=== PATIENT | female | born 1955 | race American Indian/Alaskan Native ===

== ENCOUNTER 2017-01-15 00:39 | Inpatient (IN) | payer BC ==
[~2017-01-15 00:39] MED LIST: ADRENALIN ONE; CORDARONE IV ONE; SODIUM BICARBONATE ONE
[2017-01-15] MEDS ORDERED: NACL 0.9% 1000 ML 2,000 ML ONE (00:43)
[2017-01-15] MEDS ORDERED: AMIDATE IV ONE ×2 (00:49→14:31)
--- NOTE | 2017-01-15 01:26 | Emergency Department Report ---
ED CPR HPI - General Stated Complaint: CARDIAC ARREST Time Seen by Provider: 01/15/17 01:09 Source: EMS Mode of arrival: Stretcher Limitations: Altered Mental Status, Physical Limitation - History of Present Illness Initial Comments: 61-year-old female with a history of valve replacement (2 valves) and other unkown medical problems presents to the hospital status post cardiac arrest. Patient lives last known normal at 11:30 that she developed decreased responsiveness and shortness of breath. EMS received call his respiratory distress approximately 11:30. On scene by 11:55pm and patient was apneic. Initial rhythm identified is V. fib. Patient was intubated with Combitube, had a right lower extremity IO placed. Prior to arrival received epinephrine 5 doses, 6 defibrillated shocks, 1 amp of bicarbonate, 1 amp of D50, Narcan 2 mg, and amiodarone 300. EMS reports that patient had return in spontaneous circulation times to temporarily prior to arrival. Accu-Chek was not obtained but D50 was given empirically. No previous cardiac record available for review. Family at the bedside does not know details of history. They did add that the noted that patient sneezed, complained of shortness of breath, then deteriorated Requested that they speak to have patient to bring in her current medication list and medical history. - Related Data Home Medications Medication Instructions Recorded Confirmed Last Taken Aspirin [Aspirin Enteric Coated] 81 mg PO DAILY 08/28/13 01/15/17 12/09/15 Esomeprazole Magnesium [Nexium] 40 mg PO DAILY 08/28/13 01/15/17 12/09/15 Metoprolol [Lopressor TAB] 25 mg PO Q12H 08/28/13 01/15/17 12/09/15 Potassium 20 meq PO DAILY 08/28/13 01/15/17 12/09/15 Docusate Sodium [Colace CAP] 100 mg PO BID PRN 12/10/15 01/15/17 12/09/15 Gabapentin [Neurontin] 300 mg PO BID 12/10/15 01/15/17 12/09/15 Losartan Potassium [Losartan 25 mg PO DAILY 12/10/15 01/15/17 12/09/15 Potassium] Rosuvastatin (Nf) [Crestor] 20 mg PO QHS 12/10/15 01/15/17 12/08/15 Torsemide [Torsemide] 20 mg PO DAILY 12/10/15 01/15/17 12/09/15 Warfarin [Coumadin] 2.5 mg PO DAILY 12/10/15 01/15/17 12/08/15 Baclofen 5 mg PO DAILY PRN 01/15/17 01/15/17 Unknown Topiramate [Topamax] 50 mg PO BID 01/15/17 01/15/17 Unknown Allergies Allergy/AdvReac Type Severity Reaction Status Date / Time No Known Allergies Allergy Verified 12/10/15 07:53 ED Review of Systems ROS: Stated complaint: CARDIAC ARREST Other details as noted in HPI Comment: Unobtainable due to pts medical conditions ED Past Medical Hx - Past Medical History Hx Hypertension: Yes - Social History Smoking Status: Former Smoker - Medications Home Medications: Home Medications Medication Instructions Recorded Confirmed Last Taken Type Aspirin [Aspirin Enteric Coated] 81 mg PO DAILY 08/28/13 01/15/17 12/09/15 History Esomeprazole Magnesium [Nexium] 40 mg PO DAILY 08/28/13 01/15/17 12/09/15 History Metoprolol [Lopressor TAB] 25 mg PO Q12H 08/28/13 01/15/17 12/09/15 History Potassium 20 meq PO DAILY 08/28/13 01/15/17 12/09/15 History Docusate Sodium [Colace CAP] 100 mg PO BID PRN 12/10/15 01/15/17 12/09/15 History Gabapentin [Neurontin] 300 mg PO BID 12/10/15 01/15/17 12/09/15 History Losartan Potassium [Losartan 25 mg PO DAILY 12/10/15 01/15/17 12/09/15 History Potassium] Rosuvastatin (Nf) [Crestor] 20 mg PO QHS 12/10/15 01/15/17 12/08/15 History Torsemide [Torsemide] 20 mg PO DAILY 12/10/15 01/15/17 12/09/15 History Warfarin [Coumadin] 2.5 mg PO DAILY 12/10/15 01/15/17 12/08/15 History Baclofen 5 mg PO DAILY PRN 01/15/17 01/15/17 Unknown History Topiramate [Topamax] 50 mg PO BID 01/15/17 01/15/17 Unknown History ED Physical Exam - Other Other exam information: General: No limitations, patient is alert in no acute distress Head exam: Atraumatic, normocephalic Eyes exam: Pupils unreactive to light ENT: Orally intubated with Combitube he compressed sounds bilaterally Neck exam: Normal inspection, full range of motion, no meningismus nontender Respiratory exam: No spontaneous respirations. Positive bagging Cardiovascular: Pulseless upon arrival Abdomen: Firm abdomen distended Extremity: normal inspection Back: Normal Inspection Neurologic: GSC = 3 Psychiatric: unresponsive Skin: Warm, dry, intact ED Course Vital Signs 01/15/17 01/15/17 01/15/17 00:40 01:30 01:48 Pulse Rate 72 Respiratory 32 H Rate Blood Pressure 160/134 Blood Pressure 110/92 [Left] O2 Sat by Pulse 95 100 100 Oximetry 01/15/17 01/15/17 01/15/17 02:26 02:30 02:40 Pulse Rate 83 58 L 86 Respiratory 37 H 34 H 8 L Rate Blood Pressure 157/76 157/76 161/68 Blood Pressure [Left] O2 Sat by Pulse 100 100 100 Oximetry 01/15/17 01/15/17 01/15/17 02:50 03:00 03:10 Pulse Rate 43 L 43 L 86 Respiratory 14 29 H 29 H Rate Blood Pressure 152/68 165/72 152/68 Blood Pressure [Left] O2 Sat by Pulse 100 100 100 Oximetry 01/15/17 01/15/17 01/15/17 03:20 03:30 03:40 Pulse Rate 85 46 L 44 L Respiratory 30 H 25 H 18 Rate Blood Pressure 146/73 169/67 169/67 Blood Pressure [Left] O2 Sat by Pulse 100 100 100 Oximetry 01/15/17 01/15/17 01/15/17 03:50 04:00 04:10 Pulse Rate 88 87 89 Respiratory 30 H 24 30 H Rate Blood Pressure 140/76 144/86 144/86 Blood Pressure [Left] O2 Sat by Pulse 98 98 98 Oximetry 01/15/17 01/15/17 01/15/17 04:20 04:30 05:13 Pulse Rate 90 89 Respiratory 22 18 18 Rate Blood Pressure 136/85 130/88 151/91 Blood Pressure [Left] O2 Sat by Pulse 99 98 98 Oximetry - Reevaluation(s) Reevaluation #1: 01/15/17 Resuscitation efforts continued after patient arrival. Patient received 1 defibrillator shock at 200 J for V. tach, epinephrine 1 mg, and amiodarone 150 IV push. Positive return in spontaneous circulation with palpable pulse in systolic blood pressure above 100. Combitube then removed and patient intubated. Right femoral central line placed. - Consultations Consultation #1: 01/15/17 01:15 initial [address] aleman stemi attending. Because repeat due to artifact 01/15/17 01:29 case rediscussed after review of repeat ekg. no stemi. not a candidate for laboratory analyst at this time. Recommends amiodarone drip and magnesium IV - ABG Interpretation Ph: 7.27 PCO2: 48.5 PO2: 309 (100% fio2) Bicarbonate: 22 Interpretation: respiratory acidosis Additional Comments: RR increased from 16 to 20 - Central Line Placement Right Femoral Consent Obtained: emergent situation Time Out Performed: Yes Patient Placed on Monitor/Pulse Ox: Yes MD Prep: mask, gown, gloves Central Line Prep: Chlorhexidine scrub Local Anesthesia Used: Lidocaine 1% Amount of Anesthesia Used (mls): 3 Ultrasound Used for Placement: Yes Central Line Lumen Inserted: triple Bloods Obtained for Lab: Yes Central Line Position: good blood return, sutured in place with nyl Dressing Applied: Tegaderm Patient Tolerated Procedure: well Complications: none - Intubation Time Out Performed: Yes Sedative: Etomidate Mg Given: 20 Laryngoscope: [place] Size: 4 ET Tube Size: 7.5 Tube Secured Depth (cm): 22 Tube Secured Location: lips Tube Placement Confirmation: visualized tube passing t, equal breath sounds bilat, no breath sounds over epi, confirmation by capnometr Intubation Complications: none ED Medical Decision Making - Lab Data Result diagrams: 01/15/17 01:37 01/15/17 04:15 Lab Results 01/15/17 01/15/17 01/15/17 Range/Units 01:37 01:37 01:37 WBC 29.8 H (4.5-11.0) K/mm3 RBC 3.36 L (3.65-5.03) M/mm3 Hgb 10.1 (10.1-14.3) gm/dl Hct 32.6 (30.3-42.9) % MCV 97 (79-97) fl MCH 30 (28-32) pg MCHC 31 (30-34) % RDW 13.7 (13.2-15.2) % Plt Count 280 (140-440) K/mm3 PT 23.7 H (12.2-14.9) Sec. INR 2.11 H (0.87-1.13) APTT 40.6 H (24.2-36.6) Sec. Sodium 135 L (137-145) mmol/L Potassium 3.3 L (3.6-5.0) mmol/L Chloride 92.7 L (98-107) mmol/L Carbon Dioxide 16 L (22-30) mmol/L Anion Gap 30 mmol/L BUN 18 H (7-17) mg/dL Creatinine 1.5 H (0.7-1.2) mg/dL Estimated GFR 43 ml/min BUN/Creatinine Ratio 12.00 % Glucose 478 H (65-100) mg/dL Lactic Acid (0.7-2.0) mmol/L Calcium 7.7 L (8.4-10.2) mg/dL Magnesium (1.7-2.3) mg/dL Total Creatine Kinase 189 H (30-135) units/L CK-MB (CK-2) 11.5 H (0.0-4.0) ng/mL CK-MB (CK-2) Rel Index 6.0 H (0-4) Troponin T 0.067 H (0.00-0.029) ng/mL Triglycerides 132 (2-149) mg/dL Cholesterol 112 (50-199) mg/dL LDL Cholesterol Direct 48 L (50-130) mg/dL HDL Cholesterol 38 L (40-59) mg/dL Cholesterol/HDL Ratio 2.94 % 01/15/17 01/15/17 Range/Units 01:39 02:18 WBC (4.5-11.0) K/mm3 RBC (3.65-5.03) M/mm3 Hgb (10.1-14.3) gm/dl Hct (30.3-42.9) % MCV (79-97) fl MCH (28-32) pg MCHC (30-34) % RDW (13.2-15.2) % Plt Count (140-440) K/mm3 PT (12.2-14.9) Sec. INR (0.87-1.13) APTT (24.2-36.6) Sec. Sodium (137-145) mmol/L Potassium (3.6-5.0) mmol/L Chloride (98-107) mmol/L Carbon Dioxide (22-30) mmol/L Anion Gap mmol/L BUN (7-17) mg/dL Creatinine (0.7-1.2) mg/dL Estimated GFR ml/min BUN/Creatinine Ratio % Glucose (65-100) mg/dL Lactic Acid 7.20 H* (0.7-2.0) mmol/L Calcium (8.4-10.2) mg/dL Magnesium 2.60 H (1.7-2.3) mg/dL Total Creatine Kinase (30-135) units/L CK-MB (CK-2) (0.0-4.0) ng/mL CK-MB (CK-2) Rel Index (0-4) Troponin T (0.00-0.029) ng/mL Triglycerides (2-149) mg/dL Cholesterol (50-199) mg/dL LDL Cholesterol Direct (50-130) mg/dL HDL Cholesterol (40-59) mg/dL Cholesterol/HDL Ratio % - EKG Data -: EKG Interpreted by Nc - EKG Data When compared to previous EKG there are: previous EKG unavailable 01/15/17 03:14 Multiple EKGs obtained after return of spontaneous circulation due to artifact. Initial EKG was sinus rhythm with possible ST elevation V2, V3 and lateral T wave inversions. This was discussed with Dr. Aleman and repeat ordered due to artifact. EKG does not reveal any ST elevation therefore patient was not a candidate for catheterization. Patient does have persistent lateral T wave inversions. Previous not available for comparison - Radiology Data Radiology results: image reviewed (chest x-ray: Previous sternotomy, no acute findings, good ett position) - Medical Decision Making Patient requires admission to the ICU status post cardiac arrest. Patient is not on pressors and maintaining her vital signs. No sedation at this time patient does have some spontaneous movement. Cardiology has been consulted. Amiodarone drip initiated. Magnesium 2 g given an potassium chloride 40 mEq ordered via central line for mild hypokalemia. ABG shows a respiratory acidosis and respiratory rate increased from 16 to 20 - Differential Diagnosis mi, pe, chf, arrhythmia Critical Care Time: Yes Critical care time in (mins) excluding proc time.: 65 Critical care attestation.: If time is entered above; I have spent that time in minutes in the direct care of this critically ill patient, excluding procedure time. ED Disposition Clinical Impression: Sudden cardiac arrest, V-tach, Leukocytosis, Lactic acidosis, Renal insufficiency, Anticoagulated, Elevated troponin, Hypokalemia Disposition: OP ADMITTED IP TO THIS HOSP Is pt being admited?: Yes Condition: Stable Time of Disposition: 03:17 (Dr. Taylor/hospitalist)
[2017-01-15] MEDS ORDERED: MAGNESIUM SULFATE 2GM/50ML 2 GM/50 ML BAG IV ONE (01:28)
[2017-01-15] MEDS ORDERED: VASELINE LIP THERAPY TP PRN (01:31)
[2017-01-15] MEDS ORDERED: ARTIFICIAL TEARS OPHTH OINT OU PRN (01:31)
[2017-01-15] MEDS ORDERED: NACL 0.9% 1000 ML 1,000 ML IV ONE ×4 (01:33→08:46)
[2017-01-15] MEDS: CORDARONE 900 MG in D5W 482 ML IV SCH ×2 (01:53→23:41)
[2017-01-15] MEDS ORDERED: NACL 0.9% 500 ML IV SCH (02:00)
[2017-01-15 02:01] LABS: Hematocrit 32.6 % (30.3-42.9); Hemoglobin 10.1 gm/dl (10.1-14.3); Mean Corpuscular HGB Conc 31 % (30-34); Mean Corpuscular Hemoglobin 30 pg (28-32); Mean Corpuscular Volume 97 fl (79-97); Platelet Count 280 K/mm3 (140-440); Red Blood Count 3.36 M/mm3 (3.65-5.03); Red Cell Distribution Width 13.7 % (13.2-15.2)
[2017-01-15 02:06] LABS: White Blood Count 29.8 K/mm3 (4.5-11.0)
[2017-01-15 02:11] LABS: Creatine Kinase MB 11.5 ng/mL (0.0-4.0)
[2017-01-15 02:12] LABS: Calcium 7.7 mg/dL (8.4-10.2); Chloride 92.7 mmol/L (98-107); Potassium 3.3 mmol/L (3.6-5.0)
[2017-01-15 02:16] LABS: INR 2.11 (0.87-1.13)
[2017-01-15 02:17] LABS: Partial Thromboplastin Time 40.6 Sec. (24.2-36.6)
--- NOTE | 2017-01-15 03:41 | History and Physical Report ---
History of Present Illness Date of examination: 01/15/17 Chief complaint: Cardiac arrest History of present illness: History from chart, patient intubated and family at bedside gives poor history. No prior hospitalization here. Patient is a 61-year-old woman with a history of valve replacement x 2 per family (INR is 2.11 but they are not sure if she is on anticoagulation) and unknown other medical problems who presents to [facility] ED status post cardiac arrest. Patient last known normal was 11:00-11:30 pm then she developed decreased responsiveness and shortness of breath. EMS received a call regarding respiratory distress approximately 11:30pm. They arrived on scene by 11:55 pm and patient was apneic. Initial rhythm identified was V. fib, she received epinephrine x 5 doses, 6 defibrillated shocks, 1 amp of bicarbonate, 1 amp of D50, 2 mg Narcan, and Amiodarone 300 mg. Patient was intubated with a Combitube and a right lower extremity IO placed. EMS reports that patient had temporarily return of spontaneous circulation prior to arrival. Accu-Chek was not obtained but D50 was given empirically. Family states patient sneezed, then complained of shortness of breath followed by unresponsiveness. Resuscitation efforts continued after patient arrival. Patient received 1 defibrillator shock at 200 J for V. tach, epinephrine 1 mg, and amiodarone 150 IV push. Positive return of spontaneous circulation with palpable pulse with systolic blood pressure above 100. Combitube was then removed and patient was intubated for definitely airway. Right femoral central line placed. Initial [address] elevation V2, V3 and lateral T; reviewed by Dr Vargas, Floating Derrick Operator stemi attending compensation coordinator. EKG repeated due to artifact. Case rediscussed with Dr. Vargas and after review of repeat ekg, no stemi; therefore, not a candidate for finishing lab technician at this time. So, Hospitalist was called for admission. Dr. Vargas recommends amiodarone drip and IV magnesium. Multiple EKGs obtained after return of spontaneous circulation due to artifact. Patient is not on pressors and maintaining her vital signs. No sedation at this time patient does have some spontaneous movement. Cardiology has been consulted. Amiodarone drip initiated. Magnesium 2 g given and potassium chloride 40 mEq ordered via central line for mild hypokalemia. PMH: limited PSH: Valve replacement, ?mechanical on A/C SH: unknown FH: unknown ROS: unable to obtain with ETT in place Medications and Allergies Allergies Allergy/AdvReac Type Severity Reaction Status Date / Time No Known Allergies Allergy Verified 12/10/15 07:53 Home Medications Medication Instructions Recorded Confirmed Last Taken Type Aspirin [Aspirin Enteric Coated] 81 mg PO DAILY 08/28/13 12/10/15 12/09/15 History Esomeprazole Magnesium [Nexium] 40 mg PO DAILY 08/28/13 12/10/15 12/09/15 History Metoprolol [Lopressor TAB] 12.5 mg PO Q12H 08/28/13 12/10/15 12/09/15 History Potassium 90 mg PO DAILY 08/28/13 12/10/15 12/09/15 History Docusate Sodium [Colace CAP] 100 mg PO DAILY 12/10/15 12/10/15 12/09/15 History Gabapentin [Neurontin] 100 mg PO DAILY 12/10/15 12/10/15 12/09/15 History Losartan Potassium [Losartan 25 mg PO DAILY 12/10/15 12/10/15 12/09/15 History Potassium] Rosuvastatin (Nf) [Crestor] 20 mg PO QHS 12/10/15 12/10/15 12/08/15 History Torsemide [Torsemide] 20 mg PO DAILY 12/10/15 12/10/15 12/09/15 History Warfarin [Coumadin] 2.5 mg PO DAILY 12/10/15 12/10/15 12/08/15 History Baclofen 5 mg PO DAILY PRN 01/15/17 01/15/17 Unknown History Topiramate [Topamax] 50 mg PO BID 01/15/17 01/15/17 Unknown History Active Meds: Active Medications Hydrophilic Ointment (Vaseline Lip Therapy) 1 applic TP Q2HR PRN PRN Reason: Dry Lips Amiodarone HCl 900 mg/ (Dextrose) 500 mls @ 33.33 mls/hr IV DIRECT VALERIA; 1 MG /MIN PRN Reason: Protocol Last Admin: 01/15/17 01:53 Dose: 1 mg/min, 33.33 mls/hr Sodium Chloride (Nacl 0.9% 1000 Ml) 1,000 mls @ 999 mls/hr IV BOLUS ONE Stop: 01/15/17 04:10 Potassium Chloride (Kcl 20meq/100ml) 20 meq in 100 mls @ 100 mls/hr IV Q1H VALERIA Stop: 01/15/17 05:59 Multi-Ingred Cream/Lotion/Oil/Oint (Artificial Tears Ophth Oint) 1 applic OU Q4HR PRN PRN Reason: Dry Eye(s) Sodium Chloride (Nacl 0.9% 500 Ml) 1 ml IV DIRECT VALERIA Exam - Physical Exam Narrative exam: GEN: Critical ill obese woman who is intubated HEENT: Pupils pinpoint, OP ET TUBE IN PLACE NECK: SUPPLE, NO THYROMEGALY, cervical JVD, NO LAD CVS: Irregular regular, NORMAL S1S2 LUNGS/CHEST: Coarse breath sounds bilaterally NORMAL CHEST EXPANSION B, adequate AIR ENTRY B ABD: SOFT, distended, GBS, NO REBOUND OR GUARDING EXT/SKIN: trace tibia bilateral EDEMA MSK: Not Moving 4 NEURO: CN 2-12 GROSSLY INTACT, not following commands PSY: intubated - Constitutional Vitals: Temp Pulse Resp BP Pulse Ox 32 H 160/134 100 01/15/17 01:48 01/15/17 01:48 01/15/17 01:48 Results - Labs CBC & Chem 7: 01/15/17 01:37 01/15/17 01:37 Labs: Abnormal lab results 01/15/17 01/15/17 01/15/17 Range/Units 01:37 01:37 01:37 WBC 29.8 H (4.5-11.0) K/mm3 RBC 3.36 L (3.65-5.03) M/mm3 PT 23.7 H (12.2-14.9) Sec. INR 2.11 H (0.87-1.13) APTT 40.6 H (24.2-36.6) Sec. Sodium 135 L (137-145) mmol/L Potassium 3.3 L (3.6-5.0) mmol/L Chloride 92.7 L (98-107) mmol/L Carbon Dioxide 16 L (22-30) mmol/L BUN 18 H (7-17) mg/dL Creatinine 1.5 H (0.7-1.2) mg/dL Glucose 478 H (65-100) mg/dL Lactic Acid (0.7-2.0) mmol/L Calcium 7.7 L (8.4-10.2) mg/dL Magnesium (1.7-2.3) mg/dL Total Creatine Kinase 189 H (30-135) units/L CK-MB (CK-2) 11.5 H (0.0-4.0) ng/mL CK-MB (CK-2) Rel Index 6.0 H (0-4) Troponin T 0.067 H (0.00-0.029) ng/mL LDL Cholesterol Direct 48 L (50-130) mg/dL HDL Cholesterol 38 L (40-59) mg/dL 01/15/17 01/15/17 Range/Units 01:39 02:18 WBC (4.5-11.0) K/mm3 RBC (3.65-5.03) M/mm3 PT (12.2-14.9) Sec. INR (0.87-1.13) APTT (24.2-36.6) Sec. Sodium (137-145) mmol/L Potassium (3.6-5.0) mmol/L Chloride (98-107) mmol/L Carbon Dioxide (22-30) mmol/L BUN (7-17) mg/dL Creatinine (0.7-1.2) mg/dL Glucose (65-100) mg/dL Lactic Acid 7.20 H* (0.7-2.0) mmol/L Calcium (8.4-10.2) mg/dL Magnesium 2.60 H (1.7-2.3) mg/dL Total Creatine Kinase (30-135) units/L CK-MB (CK-2) (0.0-4.0) ng/mL CK-MB (CK-2) Rel Index (0-4) Troponin T (0.00-0.029) ng/mL LDL Cholesterol Direct (50-130) mg/dL HDL Cholesterol (40-59) mg/dL - Imaging and Cardiology EKG: image reviewed Chest x-ray: image reviewed Assessment and Plan History from chart, patient is intubated and family at bedside gives poor history. No prior hospitalization here. Patient is a 61-year-old woman with a history of valve replacement x 2 per family (INR is 2.11 but they are not sure if she is on anticoagulation) and unknown other medical problems who presents to [facility] ED status post cardiac arrest. Patient last known normal was 11:00-11:30 pm then she developed decreased responsiveness and shortness of breath. EMS received a call regarding respiratory distress approximately 11:30pm. They arrived on scene by 11:55 pm and patient was apneic. Initial rhythm identified was V. fib, she received epinephrine x 5 doses, 6 defibrillated shocks, 1 amp of bicarbonate, 1 amp of D50, 2 mg Narcan, and Amiodarone 300 mg. Patient was intubated with a Combitube and a right lower extremity IO placed. EMS reports that patient had temporarily return of spontaneous circulation prior to arrival. Accu-Chek was not obtained but D50 was given empirically. Family states patient sneezed, then complained of shortness of breath followed by unresponsiveness. Resuscitation efforts continued after patient arrival. Patient received 1 defibrillator shock at 200 J for V. tach, epinephrine 1 mg, and amiodarone 150 IV push. Positive return of spontaneous circulation with palpable pulse with systolic blood pressure above 100. Combitube was then removed and patient was intubated for definitely airway. Right femoral central line placed. Initial [address] elevation V2, V3 and lateral T; reviewed by Dr Vargas, Floating Derrick Operator stemi attending compensation coordinator. EKG repeated due to artifact. Case rediscussed with Dr. Vargas and after review of repeat ekg, no stemi; therefore, not a candidate for finishing lab technician at this time. So, Hospitalist was called for admission. Dr. Vargas recommends amiodarone drip and IV magnesium. Multiple EKGs obtained after return of spontaneous circulation due to artifact. Patient is not on pressors and maintaining her vital signs. No sedation at this time but patient does have some spontaneous movement. Cardiology has been consulted. Amiodarone drip initiated. Magnesium 2 g given and potassium chloride 40 mEq ordered via central line for mild hypokalemia. Requested that bring in her current medication list and medical history. Current med list has not been verified to reconcile. -Cardiac arrest as above: Consulted cardiology -Acute respiratory failure: consulted CCM -SIRS: empiric treat with ABX -Acute encephalopathy -DVT prophylaxis: INR therapeutic -?ELIGIO, vasomotor nephropathy -Electrolyte imbalances
[2017-01-15] MEDS: KCL 20MEQ/100ML 20 MEQ/100 ML BAG IV SCH ×2 (04:03→05:44)
[2017-01-15 04:57] LABS: Calcium 7.8 mg/dL (8.4-10.2); Chloride 97.4 mmol/L (98-107)
[2017-01-15 05:03] LABS: Potassium 5.3 mmol/L (3.6-5.0)
[2017-01-15 05:10] LABS: ISTAT Base Excess -4; ISTAT HCO3 22.5; ISTAT PCO2 48.5 (35-45); ISTAT PH 7.274 (7.35-7.45); ISTAT PO2 309 (80-105); ISTAT SO2 100; ISTAT TCO2 24
--- NOTE | 2017-01-15 05:11 | Admit Criteria Form ---
Admission Criteria Documentation: CARDIOLOGY GRG Clinical Indications for Admission to Inpatient Care ( Place 'X' for any and all applicable criteria): Hospital admission is needed for appropriate care of the patient because of ANY ONE of the following (1): [ ] I. Hemodynamic instability as indicated by ALL of the following (1)(2)(3) (4)(5) [ ]a) Vital signs or other findings not as expected for chronic patient condition or baseline [ ]b) Instability indicated by ANY ONE of the following: [ ]i) Hypotension [ ]ii) Symptomatic Tachycardia unresponsive to treatment ( e.g., analgesia, fluids, sedation as indicated) [ ]iii) Inadequate perfusion indicated by ANY ONE of the following: [ ] 1) Lactic acidosis (> 2 mmol/L) [ ] 2) New abnormal capillary refill (> 3 seconds) [ ] 3) Reduced urine output [ ] 4) New altered mental status [ ]iv) Orthostatic vital sign changes unresponsive to treatment (e.g., fluids) [ ]v) IV inotropic or vasopressor medication required to maintain adequate blood pressure or perfusion [ ] II. Severe heart failure as indicated by ANY ONE of the following(17)(18) [ ]a) Respiratory distress [ ]b) Hypotension [ ]c) Anasarca (refractory to outpatient therapy) [ ]d) Cardiac arrhythmias of immediate concern [ ]e) Myocardial ischemia [ ] III. Cardiac arrhythmias or findings of immediate concern indicated by ANY ONE of the following (19)(20): [ ] a) Heart rhythms that are inherently dangerous or unstable indicated by ANY ONE of the following (21)(22)(23): [ ] i) Resuscitated ventricular fibrillation or cardiac arrest [ ] ii) Ventricular escape rhythm [ ] iii) Sustained ventricular tachycardia (30 seconds or more of ventricular rhythm at greater than 100 beats per minute) [ ] iv) Nonsustained ventricular tachycardia and ANY ONE of the following: [ ] 1) Suspected cardiac ischemia as cause or consequence of ventricular tachycardia [ ] 2) In setting of acute myocarditis [ ] b) Unstable cardiac conduction defects indicated by ANY ONE of the following(23)(24)(25) [ ] i) Type II second-degree atrioventricular block [ ]ii) Third-degree atrioventricular block [ ]iii) New-onset left bundle branch block with suspected myocardial ischemia [ ]c) Any heart rhythm and ANY ONE of the following (21)(22)(26)(27) (28) [ ] i) Continuous long-term ECG monitoring needed (e.g., initiation of drug requiring monitoring for more than 24 hours) [ ] ii) Patient has automatic implanted cardioverter defibrillator that is repeatedly firing, malfunctioning, or in need of immediate adjustment of settings beyond the scope of ambulatory or observation care [ ]d) Heart rhythms of concern due to ANY ONE of the following: [ ] i) Hypotension [ ] ii) Respiratory distress [ ] iii) Association with other significant symptoms (e.g., bradycardia with syncope or ongoing dizziness, supraventricular tachycardia with chest pain (14)(15)(17) [ ] IV. Monitoring for cardiac contusion beyond the scope of observation care needed [A](30)(31)(32) [ ] V. Surgical or device complication (e.g., valve replacement complication , pacemaker dysfunction) (35)(41)(44)(45)(46) [ ] . Inpatient palliative care needed. [B](49) Also use Inpatient Palliative Care Criteria [ ] VII. Nonbacterial thrombotic (marantic) endocarditis (36)(43)(47)(48) [X ] VIII. Cardiology condition, symptom, or finding for which emergency and observation care has failed or are not considered appropriate. [ ] IX. Acute valvular disease requiring inpatient as indicated by ANY ONE of the following (41) [ ]a) Acute valvular regurgitation (42) [ ]b) Noninfectious valvulitis (43) [ ]c) Obstructive valve thrombosis [ ]d) Paravalvular leak [ ]e) Other significant valvular disorder remaining after emergency or observation level of care (as appropriate) [ ]X. Pericardial disease requiring inpatient treatment as indicated by ANY ONE of the following (33)(34)(35)(36)(37) [ ]a) Suspected tamponade (38)(39)(40) [ ]b) Hemopericardium [ ]c) Other significant pericardial disorder remaining after emergency or observation level of care (as appropriate) [ ] XI. Cardiac ischemia beyond scope of emergency and observation care. [ ] XII. Hypertension requiring inpatient treatment as indicated by ANY ONE of the following (6)(7)(8) [ ]a) SBP greater than 220 mm Hg or DBP greater than 120 mmHg despite treatment [ ]b) SBP greater than 140 mm Hg or DBP greater than 100 mm Hg with evidence of acute end organ damage as indicated by ANY ONE of the following [ ] i) Altered mental status [ ] ii) Acute renal failure as indicated by new onset of ANY ONE of the following (9)(10)(11)(12)(13) [ ]1) 3-fold rise in serum creatinine from baseline [ ]2) Serum creatinine greater than 4 mg/dL ( 354 micromoles/L) with acute rise greater than 0.5 mg/dL (44.2 micromoles/L) [ ]3) Reduction of more than 75% in estimated glomerular filtration rate from baseline [ ]4) Estimated glomerular filtration rate less than 35 mL/min/1.73m2 (0.59 mL/sec/1.73m2) in child up to 18 years of age [ ]5) Cessation of urine output indicated by ALL of the following [ ]A. Adequate volume status [ ]B. Inadequate urine output as indicated by ANY ONE of the following [ ]a. Urine output less than 0.3 mL/kg/hr for 24 hours [ ]b. Anuria (urine output less than 0.1 mL/kg/hr) for 12 hours [ ] iii) Aortic dissection [ ] iv) Myocardial Ischemia [ ] v) Left ventricular heart failure [ ]vi) Retinal Hemorrhage [ ]vii) Other significant finding [ ]c) Hypertension in child requiring inpatient treatment as indicated by ALL of the following(14)(15)(16) [ ] i) Outpatient treatment not effective, not available, or not appropriate [ ]ii) SBP or DBP greater than 95th percentile for age [ ]iii) Evidence of acute end organ damage as indicated by ANY ONE of the following [ ]1) Altered mental status [ ]2) Acute renal failure as indicated by new onset of ANY ONE of the following(9)(10)(11)(12)(13) [ ]A. 3-fold rise in serum creatinine from baseline [ ]B. Serum creatinine greater than 4 mg/dL (354 micromoles/L) with acute rise greater than 0.5 mg/dL (44.2 micromoles/L) [ ]C. Reduction of more than 75% in estimated glomerular filtration rate from baseline [ ]D. Estimated glomerular filtration rate less than 35 mL/min/1.73m2 (0.59 mL/sec/1.73m2) in child up to 18 years of age [ ]E. Cessation of urine output indicated by ALL of the following [ ]a. Adequate volume status [ ]b. Inadequate urine output as indicated by ANY ONE of the following [ ]i) Urine output less than 0.3 mL/kg/hr for 24 hours [ ]ii) Anuria ( urine output less than 0.1 mL/kg/hr) for 12 hours [ ]3) Severe headache [ ]4) Visual disturbance [ ]5) Retinal hemorrhage [ ]6) Other significant finding [ ]XIII. Complications of transplanted heart indicated by ANY ONE of the following(61): [ ]a) Acute graft rejection requiring inpatient management (eg, intravenous immunosuppression)(62)(63) [ ]b) Acute graft heart failure indicated by ANY ONE of the following(64): [ ]i) Hemodynamic instability [ ]ii) Cardiac arrhythmias of immediate concern [ ]iii) Pulmonary edema that is very severe (eg, mechanical ventilation needed, imminent or likely, need for 100% oxygen to keep oxygen saturation above 90%) [ ]iv) Pulmonary edema that is persistent as indicated by ALL of the following: [ ]1) New need for oxygen therapy to keep oxygen saturation above 90% (or increased FiO2 need from baseline) [ ]2) Has not improved sufficiently with emergency department or observation care IV diuretics or other heart failure treatments[E] [ ]v) Altered mental status that is severe or persistent [ ]vi) Increased creatinine (new on laboratory test) with reduction of more than 50% in estimated glomerular filtration rate from baseline [ ]vii) Progressively (ongoing) rising creatinine (known from past laboratory test) with reduction of more than 25% in estimated glomerular filtration rate from baseline [ ]viii) Acute renal failure [ ]ix) Acute peripheral ischemia (eg, examination shows pulseless, cool, mottled, or cyanotic extremity) [ ]x) Pulmonary artery catheter monitoring needed [ ]xi) Other sign or symptom of heart failure requiring inpatient treatment (ie, too severe or not responsive to outpatient and observation care treatment) [ ]c) Infection requiring inpatient management (eg, Hemodynamic instability, need for intravenous antimicrobial treatment)(66)(67)(68)(69)(70) [ ]d) Cardiac allograft vasculopathy requiring inpatient management ( eg evidence of cardiac ischemia)(71) [ ]e) Other complication of transplanted heart (eg, stroke, severe pulmonary hypertension, severe valvular dysfunction) requiring inpatient management(72) The original [facility] [employer] content created by [facility] has been revised. The portions of the content which have been revised are identified through the use of italic text or in bold, and [facility] has neither reviewed nor approved the modified material. All other unmodified content is copyright [facility] [employer]. Please see references footnoted in the original [facility] [employer] edition 2016 Admission Criteria Met: Yes
[2017-01-15] MEDS: ZOSYN/NS 4.5GM/100ML 4.5 GM/100 ML VIAL IV SCH ×3 (06:29→22:18)
--- NOTE | 2017-01-15 07:02 | XRay Report ---
Single view chest: History: Postintubation. Findings: Borderline cardiomegaly. Trachea is midline. Tip of endotracheal tube in normal position. No consolidation, pneumothorax or pleural effusion. Impression: Cardiomegaly. No acute lung changes.
[2017-01-15 07:35] LABS: Creatine Kinase MB 75.8 ng/mL (0.0-4.0)
[2017-01-15] MEDS ORDERED: NACL 0.9% 1000 ML 1,000 ML ONE ×2 (07:54→15:07)
[2017-01-15] MEDS: LEVOPHED DRIP 4 MG/NS 250 ML 4 MG/250 ML BAG IV SCH ×4 (08:48→23:05)
--- NOTE | 2017-01-15 10:43 | Consultation ---
History of Present Illness Consult date: 01/15/17 Reason for consult: other (out of hospital cardiac arrest, VT with defibrillation, ROSC,CAD) History of present illness: Called at the unit to evaluate case with a patient have being admitted after out -of-hospital cardiac arrest. Son at bedside but he has no knowledge the patient 's history since he lives out of town. Per record review, " 61-year-old woman with a history of valve replacement x 2 per family (INR is 2.11 but they are not sure if she is on anticoagulation) and unknown other medical problems who presents to [facility] ED status post cardiac arrest. Patient last known normal was 11:00-11:30 pm then she developed decreased responsiveness and shortness of breath. EMS received a call regarding respiratory distress approximately 11:30pm. They arrived on scene by 11:55 pm and patient was apneic. Initial rhythm identified was V. fib, she received epinephrine x 5 doses, 6 defibrillated shocks, 1 amp of bicarbonate, 1 amp of D50, 2 mg Narcan, and Amiodarone 300 mg. Patient was intubated with a Combitube and a right lower extremity IO placed. EMS reports that patient had temporarily return of spontaneous circulation prior to arrival. Accu-Chek was not obtained but D50 was given empirically. Family states patient sneezed, then complained of shortness of breath followed by unresponsiveness. Resuscitation efforts continued after patient arrival. Patient received 1 defibrillator shock at 200 J for V. tach, epinephrine 1 mg, and amiodarone 150 IV push. Positive return of spontaneous circulation with palpable pulse with systolic blood pressure above 100. Combitube was then removed and patient was intubated for definitely airway. Right femoral central line placed. Initial [address] elevation V2, V3 and lateral T; reviewed by Dr Vargas, Front End Application Developer stemi attending content administrator. EKG repeated due to artifact. Case rediscussed with Dr. Vargas and after review of repeat ekg, no stemi; therefore, not a candidate for equipment operator/laborer/supervisor at this time. So, Hospitalist was called for admission. Dr. Vargas recommends amiodarone drip and IV magnesium. Multiple EKGs obtained after return of spontaneous circulation due to artifact. Patient is not on pressors and maintaining her vital signs. No sedation at this time patient does have some spontaneous movement. Cardiology consulted. Amiodarone drip initiated. Patient is currently at the unit, on Lopressor drip, BP 88/52. Past History Past Medical History: acute [place], CAD Medications and Allergies Allergies Allergy/AdvReac Type Severity Reaction Status Date / Time No Known Allergies Allergy Verified 12/10/15 07:53 Home Medications Medication Instructions Recorded Confirmed Last Taken Type Aspirin [Aspirin Enteric Coated] 81 mg PO DAILY 08/28/13 01/15/17 12/09/15 History Esomeprazole Magnesium [Nexium] 40 mg PO DAILY 08/28/13 01/15/17 12/09/15 History Metoprolol [Lopressor TAB] 25 mg PO Q12H 08/28/13 01/15/17 12/09/15 History Potassium 20 meq PO DAILY 08/28/13 01/15/17 12/09/15 History Docusate Sodium [Colace CAP] 100 mg PO BID PRN 12/10/15 01/15/17 12/09/15 History Gabapentin [Neurontin] 300 mg PO BID 12/10/15 01/15/17 12/09/15 History Losartan Potassium [Losartan 25 mg PO DAILY 12/10/15 01/15/17 12/09/15 History Potassium] Rosuvastatin (Nf) [Crestor] 20 mg PO QHS 12/10/15 01/15/17 12/08/15 History Torsemide [Torsemide] 20 mg PO DAILY 12/10/15 01/15/17 12/09/15 History Warfarin [Coumadin] 2.5 mg PO DAILY 12/10/15 01/15/17 12/08/15 History Baclofen 5 mg PO DAILY PRN 01/15/17 01/15/17 Unknown History Topiramate [Topamax] 50 mg PO BID 01/15/17 01/15/17 Unknown History Active Meds: Active Medications Hydrophilic Ointment (Vaseline Lip Therapy) 1 applic TP Q2HR PRN PRN Reason: Dry Lips Amiodarone HCl 900 mg/ (Dextrose) 500 mls @ 33.33 mls/hr IV DIRECT VALERIA; 1 MG /MIN PRN Reason: Protocol Last Titration: 01/15/17 08:13 Dose: 0.49 mg/min, 16.66 mls/hr Piperacillin Sod/Tazobactam Sod (Zosyn/Ns 4.5gm/100ml) 4.5 gm in 100 mls @ 200 mls/hr IV Q8HR VALERIA PRN Reason: Protocol Last Admin: 01/15/17 06:29 Dose: 200 mls/hr Norepinephrine (Levophed Drip 4 Mg/Ns 250 Ml) 4 mg in 250 mls @ 7.5 mls/hr IV TITR VALERIA; 2 MCG/MIN PRN Reason: Protocol Last Titration: 01/15/17 09:09 Dose: 30 mcg/min, 112.5 mls/hr Multi-Ingred Cream/Lotion/Oil/Oint (Artificial Tears Ophth Oint) 1 applic OU Q4HR PRN PRN Reason: Dry Eye(s) Sodium Chloride (Nacl 0.9% 500 Ml) 1 ml IV DIRECT VALERIA Review of Systems ROS unobtainable: due to endotracheal tube, due to mental status Physical Examination Vital signs: Vital Signs Pulse BP Pulse Ox 72 110/92 95 01/15/17 00:40 01/15/17 00:40 01/15/17 00:40 General appearance: other (morbidly obese female, intubated orally, in no respiratory distress.) ENT: oropharynx moist Neck: supple, other (large neck difficult to panel for JVD) Ascultation: Bilateral: rhonchi (some sporadic, otherwise clear. No crackles) Cardiovascular: irregular rhythm Gastrointestinal: normoactive bowel sounds, non-distended Integumentary: normal Extremities: no cyanosis other (patient's, toes, nonresponsive. Pupils are approximately 5 mm nonreactive, no corneals. No posturing on pain stimulation) Results - Laboratory Findings CBC and BMP: 01/15/17 01:37 01/15/17 04:15 ABG POC ABG pH 7.274 (7.35-7.45) L 01/15/17 03:27 POC ABG pCO2 48.5 (35-45) H 01/15/17 03:27 POC ABG pO2 309 (80-105) H 01/15/17 03:27 POC ABG HCO3 22.5 01/15/17 03:27 POC ABG Total CO2 24 01/15/17 03:27 POC ABG O2 Sat 100 01/15/17 03:27 PT/INR, D-dimer PT 23.7 Sec. (12.2-14.9) H 01/15/17 01:37 INR 2.11 (0.87-1.13) H 01/15/17 01:37 Abnormal lab findings: Abnormal Labs 01/15/17 01/15/17 01/15/17 04:15 06:56 08:31 Sodium 136 L Potassium 5.3 H D Chloride 97.4 L BUN 22 H Creatinine 2.0 H Glucose 442 H Lactic Acid 3.00 H* Calcium 7.8 L Total Creatine Kinase 762 H CK-MB (CK-2) 75.8 H CK-MB (CK-2) Rel Index 9.9 H Troponin T 1.810 H* D - Diagnostic Findings Chest x-ray: report reviewed, image reviewed Assessment and Plan Out of hospital cardiac arrest with ROSC Ventricular tachycardia Coronary artery disease Anoxic encephalopathy Morbid obesity Hypertension Recommendations Follow-up ventilator protocol orders. Update ABG Bolus of normal saline 500 mL now keep blood pressure, MAP > 60 Hypothermia protocol next 24 hours, once blood pressure stabilizes Cardiology follow-up If no further neurological improvement in the next 24 hours, consider neurology consult EEG monitoring DVT prophylaxis Case discussed with LOCAL COORDINATOR,family in detail. All questions answered. Prognosis grave at this point. Critical care time was 40 minutes in [id number] evaluation and coordination of care
--- NOTE | 2017-01-15 11:32 | Progress Note ---
Assessment and Plan Assessment and plan: s/p V. fib arrest. Continue amiodarone drip. Cardiology consultation pending. Acute hypoxic respiratory failure. Pulmonary following. Septic shock. Patient with significant leukocytosis(29.8) and lactic acidosis( 7.2) on admission. Patient currently on Levophed drip. Continue sepsis pathway and IV antibiotics. Follow-up cultures and trend lactic acid levels. Elevated troponin. Etiology secondary to #1. Follow-up echocardiogram. Acute renal failure. Etiology secondary to acute kidney injury from ATN/sepsis/ hypoperfusion. Nephrology consultation. Check renal ultrasound. History Interval history: 61-year-old female with history of valve replacement 2 presented through the emergency department status post V. fib arrest. Patient received multiple medications during the resuscitative efforts. Please see chart for details. Patient currently intubated on mechanical ventilation with amiodarone and Levophed drips infusing. Hospitalist Physical - Constitutional Vitals: Temp Pulse Resp BP Pulse Ox 98.2 F 85 19 102/70 97 01/15/17 08:11 01/15/17 09:15 01/15/17 09:15 01/15/17 09:15 01/15/17 09:15 General appearance: Present: no acute distress, well-nourished - EENT Eyes: Present: PERRL, EOM intact ENT: hearing intact, clear oral mucosa, dentition normal - Neck Neck: Present: supple, normal ROM - Respiratory Respiratory effort: normal Respiratory: bilateral: diminished, rales, rhonchi - Cardiovascular Rhythm: regular Heart Sounds: Present: S1 & S2. Absent: gallop, rub - Extremities Extremities: no ischemia, No edema, Full ROM - Abdominal General gastrointestinal: soft, non-tender, non-distended, normal bowel sounds - Integumentary Integumentary: Present: clear, warm, dry - Neurologic Neurologic: CNII-XII intact, moves all extremities Results - Labs CBC & Chem 7: 01/15/17 01:37 01/15/17 04:15 Labs: Laboratory Last Values WBC 29.8 K/mm3 (4.5-11.0) H 01/15/17 01:37 RBC 3.36 M/mm3 (3.65-5.03) L 01/15/17 01:37 Hgb 10.1 gm/dl (10.1-14.3) 01/15/17 01:37 Hct 32.6 % (30.3-42.9) 01/15/17 01:37 MCV 97 fl (79-97) 01/15/17 01:37 MCH 30 pg (28-32) 01/15/17 01:37 MCHC 31 % (30-34) 01/15/17 01:37 RDW 13.7 % (13.2-15.2) 01/15/17 01:37 Plt Count 280 K/mm3 (140-440) 01/15/17 01:37 PT 23.7 Sec. (12.2-14.9) H 01/15/17 01:37 INR 2.11 (0.87-1.13) H 01/15/17 01:37 APTT 40.6 Sec. (24.2-36.6) H 01/15/17 01:37 POC ABG pH 7.274 (7.35-7.45) L 01/15/17 03:27 POC ABG pCO2 48.5 (35-45) H 01/15/17 03:27 POC ABG pO2 309 (80-105) H 01/15/17 03:27 POC ABG HCO3 22.5 01/15/17 03:27 POC ABG Total CO2 24 01/15/17 03:27 POC ABG O2 Sat 100 01/15/17 03:27 POC ABG Base Excess -4 01/15/17 03:27 FiO2 100 % 01/15/17 03:27 Sodium 136 mmol/L (137-145) L 01/15/17 04:15 Potassium 5.3 mmol/L (3.6-5.0) H D 01/15/17 04:15 Chloride 97.4 mmol/L (98-107) L 01/15/17 04:15 Carbon Dioxide 22 mmol/L (22-30) 01/15/17 04:15 Anion Gap 22 mmol/L 01/15/17 04:15 BUN 22 mg/dL (7-17) H 01/15/17 04:15 Creatinine 2.0 mg/dL (0.7-1.2) H 01/15/17 04:15 Estimated GFR 31 ml/min 01/15/17 04:15 BUN/Creatinine Ratio 11.00 % 01/15/17 04:15 Glucose 442 mg/dL (65-100) H 01/15/17 04:15 POC Glucose 452 (70-105) H 01/15/17 00:42 Lactic Acid 3.00 mmol/L (0.7-2.0) H* 01/15/17 08:31 Calcium 7.8 mg/dL (8.4-10.2) L 01/15/17 04:15 Magnesium 2.60 mg/dL (1.7-2.3) H 01/15/17 01:39 Total Creatine Kinase 762 units/L (30-135) H 01/15/17 06:56 CK-MB (CK-2) 75.8 ng/mL (0.0-4.0) H 01/15/17 06:56 CK-MB (CK-2) Rel Index 9.9 (0-4) H 01/15/17 06:56 Troponin T 1.810 ng/mL (0.00-0.029) H* D 01/15/17 06:56 Triglycerides 132 mg/dL (2-149) 01/15/17 01:37 Cholesterol 112 mg/dL (50-199) 01/15/17 01:37 LDL Cholesterol Direct 48 mg/dL (50-130) L 01/15/17 01:37 HDL Cholesterol 38 mg/dL (40-59) L 01/15/17 01:37 Cholesterol/HDL Ratio 2.94 % 01/15/17 01:37
[2017-01-15] MEDS ORDERED: SODIUM BICARBONATE FEEDTUBE PRN (13:02)
[2017-01-15] MEDS ORDERED: PANCREAZE DR 10,500 UNIT FEEDTUBE PRN (13:02)
[2017-01-15] MEDS ORDERED: SIMPLE SYRUP FEEDTUBE PRN ×2 (13:02)
[2017-01-15 13:42] LABS: Creatine Kinase MB 74.8 ng/mL (0.0-4.0)
--- NOTE | 2017-01-15 15:30 | Ultrasound Report ---
ULTRASOUND RENAL INDICATION: Acute renal failure. COMPARISON: None similar. FINDINGS: Renal sonography technically limited, though suggests borderline/mild increased renal cortical echogenicity, more so on the right. Diffuse echogenic imaged liver. Grossly preserved renal contours. No hydronephrosis. RIGHT KIDNEY measures 10.5 x 4.3 x 5.7 cm with cortical thickness of 1.5 cm. LEFT KIDNEY estimated at 11.5 x 6.1 x 5.8 cm with cortical thickness of 1.5 cm. URINARY BLADDER suboptimally distended and assessed due to an indwelling Black catheter. CONCLUSION: Mild underlying medical renal disease and fatty liver suspected sonographically without acute renal abnormality, as described. Please correlate. Thank you for the opportunity to participate in this patient's care.
--- NOTE | 2017-01-15 16:05 | Consultation ---
History of Present Illness Consult date: 01/15/17 Consult reason: cardiac arrest History of present illness: 61yr old woman admitted with out of the hospital cardiopulmonary arrest. Reported VF in the field, defibrillated several times. No acute ischemic changes on post resuscitation ECG. Multiple metabolic abnormalities on initial workup. Currently on pressor support and IV amiodarone drip. Review of records shows an extensive cardiac history. Patient has a history of rheumatic heart disease status post mechanical AVR. In 2009 patient was found to have multivessel coronary disease and underwent 3 vessel coronary bypass grafting followed by PCI 2012. A year ago she was found to have progressive mitral disease and underwent mechanical MVR at [facility]. She also has a history of paroxysmal atrial fibrillation. She is on warfarin for anticoagulation. INR 2.11 on presentation to the ED. Past History Past Medical History: acute [place], CAD Medications and Allergies Allergies Allergy/AdvReac Type Severity Reaction Status Date / Time No Known Allergies Allergy Verified 12/10/15 07:53 Home Medications Medication Instructions Recorded Confirmed Last Taken Type Aspirin [Aspirin Enteric Coated] 81 mg PO DAILY 08/28/13 01/15/17 12/09/15 History Esomeprazole Magnesium [Nexium] 40 mg PO DAILY 08/28/13 01/15/17 12/09/15 History Metoprolol [Lopressor TAB] 25 mg PO Q12H 08/28/13 01/15/17 12/09/15 History Potassium 20 meq PO DAILY 08/28/13 01/15/17 12/09/15 History Docusate Sodium [Colace CAP] 100 mg PO BID PRN 12/10/15 01/15/17 12/09/15 History Gabapentin [Neurontin] 300 mg PO BID 12/10/15 01/15/17 12/09/15 History Losartan Potassium [Losartan 25 mg PO DAILY 12/10/15 01/15/17 12/09/15 History Potassium] Rosuvastatin (Nf) [Crestor] 20 mg PO QHS 12/10/15 01/15/17 12/08/15 History Torsemide [Torsemide] 20 mg PO DAILY 12/10/15 01/15/17 12/09/15 History Warfarin [Coumadin] 2.5 mg PO DAILY 12/10/15 01/15/17 12/08/15 History Baclofen 5 mg PO DAILY PRN 01/15/17 01/15/17 Unknown History Topiramate [Topamax] 50 mg PO BID 01/15/17 01/15/17 Unknown History Active Meds: Active Medications Lipase/Protease/Amylase (Pancreaze Dr 10,500 Unit) 1 each FEEDTUBE PRN PRN PRN Reason: For Clogged Feeding Tube Hydrophilic Ointment (Vaseline Lip Therapy) 1 applic TP Q2HR PRN PRN Reason: Dry Lips Amiodarone HCl 900 mg/ (Dextrose) 500 mls @ 33.33 mls/hr IV DIRECT VALERIA; 1 MG /MIN PRN Reason: Protocol Last Titration: 01/15/17 08:13 Dose: 0.49 mg/min, 16.66 mls/hr Piperacillin Sod/Tazobactam Sod (Zosyn/Ns 4.5gm/100ml) 4.5 gm in 100 mls @ 200 mls/hr IV Q8HR VALERIA PRN Reason: Protocol Last Admin: 01/15/17 15:51 Dose: 200 mls/hr Norepinephrine (Levophed Drip 4 Mg/Ns 250 Ml) 4 mg in 250 mls @ 7.5 mls/hr IV TITR VALERIA; 2 MCG/MIN PRN Reason: Protocol Last Admin: 01/15/17 15:52 Dose: 30 mcg/min, 112.5 mls/hr Multi-Ingred Cream/Lotion/Oil/Oint (Artificial Tears Ophth Oint) 1 applic OU Q4HR PRN PRN Reason: Dry Eye(s) Simple Syrup (Simple Syrup) 15 ml FEEDTUBE PRN PRN PRN Reason: Hypoglycemia Simple Syrup (Simple Syrup) 30 ml FEEDTUBE PRN PRN PRN Reason: Hypoglycemia Sodium Bicarbonate (Sodium Bicarbonate) 325 mg FEEDTUBE PRN PRN PRN Reason: For Clogged Feeding Tube Sodium Chloride (Nacl 0.9% 500 Ml) 1 ml IV DIRECT VALERIA Physical Examination Vital Signs Pulse BP Pulse Ox 72 110/92 95 01/15/17 00:40 01/15/17 00:40 01/15/17 00:40 General appearance: other (intubated on the vent) Cardiac: Positive: Reg Rate and Rhythm Results 01/15/17 01:37 01/15/17 04:15 Cardiac Enzymes 01/15/17 01/15/17 Range/Units 06:56 13:10 CK-MB (CK-2) 75.8 H 74.8 H (0.0-4.0) ng/mL Comprehensive Metabolic Panel 01/15/17 Range/Units 04:15 Sodium 136 L (137-145) mmol/L Potassium 5.3 H D (3.6-5.0) mmol/L Chloride 97.4 L (98-107) mmol/L Carbon Dioxide 22 (22-30) mmol/L BUN 22 H (7-17) mg/dL Creatinine 2.0 H (0.7-1.2) mg/dL Glucose 442 H (65-100) mg/dL Calcium 7.8 L (8.4-10.2) mg/dL Assessment and Plan Out of the hospital cardiopulmonary arrest reported Vfib in the field on amiodarone drip Acute respiratory failure intubated on the vent Lactic acidosis Leukocytosis Acute renal failure Hx of mechanical AVR and MVR on warfarin as an outpatient. INR 2.11 on presentation Hx of paroxysmal Afib Hx of CAD s/p 3v CABG
[2017-01-15 16:15] LABS: ISTAT Base Excess -9; ISTAT HCO3 17.2; ISTAT PCO2 35.5 (35-45); ISTAT PH 7.294 (7.35-7.45); ISTAT PO2 91 (80-105); ISTAT SO2 96; ISTAT TCO2 18
[2017-01-16] MEDS: LEVOPHED DRIP 4 MG/NS 250 ML 4 MG/250 ML BAG IV SCH ×8 (01:16→17:27)
[2017-01-16] MEDS: ZOSYN/NS 4.5GM/100ML 4.5 GM/100 ML VIAL IV SCH ×3 (05:48→22:39)
[2017-01-16 06:22] LABS: BUN/Creatinine Ratio 9.44; Calcium 8.2 mg/dL (8.4-10.2); Chloride 102.8 mmol/L (98-107); Hematocrit 38.8 % (30.3-42.9); Hemoglobin 12.1 gm/dl (10.1-14.3); Mean Corpuscular HGB Conc 31 % (30-34); Mean Corpuscular Hemoglobin 31 pg (28-32); Mean Corpuscular Volume 98 fl (79-97); Platelet Count 307 K/mm3 (140-440); Potassium 3.4 mmol/L (3.6-5.0); Red Blood Count 3.98 M/mm3 (3.65-5.03); Red Cell Distribution Width 13.9 % (13.2-15.2)
[2017-01-16 06:24] LABS: White Blood Count 22.1 K/mm3 (4.5-11.0)
[2017-01-16 06:28] LABS: ISTAT Base Excess -9; ISTAT HCO3 16.6; ISTAT PCO2 31.5 (35-45); ISTAT PH 7.329 (7.35-7.45); ISTAT PO2 98 (80-105); ISTAT SO2 97; ISTAT TCO2 18
--- NOTE | 2017-01-16 08:26 | XRay Report ---
AP CHEST :01/16/17 CLINICAL: Intubated.Follow up respiratory failure. COMPARISON:The previous day. FINDINGS: The endotracheal tube is in satisfactory position. Are a feeding tube is identified in the upper half of the chest but the tip is not identified in the lower third of the esophagus or in the upper abdomen. The heart is normal size. Central vascular congestion is slightly increased compared to the prior exam. New wetting of the right minor fissure. No air space disease. Median sternotomy wires. No pneumothorax. IMPRESSION: Interval development of mild CHF.The distal aspect of the feeding tube is not identified and may be in the esophagus.
[2017-01-16] MEDS ORDERED: HEPARIN/ 0.45% NACL-25,000 UNIT/500 ML 500 ML IV SCH (10:00)
[2017-01-16 10:19] LABS: Hemoglobin 10.4 gm/dl (10.1-14.3)
[2017-01-16 10:31] LABS: INR 3.51 (0.87-1.13); Partial Thromboplastin Time 39.1 Sec. (24.2-36.6)
--- NOTE | 2017-01-16 10:46 | Progress Note ---
Assessment and Plan Assessment and plan: s/p V. fib arrest. Continue amiodarone drip. Cardiology following. Echocardiogram pending. Coronary artery disease. Patient reportedly has an extensive cardiac history with CABG 3. Patient also with mechanical valve replacements x 2 and coronary stenting. Continue supportive therapies including beta blockers, afterload reducing agents and anticoagulation. Follow-up old records at [facility]. Acute hypoxic respiratory failure. Pulmonary following. Continue mechanical ventilation per pulmonary. Shock. Etiology may be secondary to sepsis +/-cardiogenic. Patient with significant leukocytosis(29.8) and lactic acidosis(7.2) on admission. Patient currently on Levophed drip. Continue sepsis pathway and IV antibiotics. Follow -up cultures and trend lactic acid levels. Echocardiogram pending. Elevated troponin. Etiology secondary to #1. Follow-up echocardiogram. Acute renal failure. Etiology secondary to acute kidney injury from ATN/sepsis/ hypoperfusion. Nephrology consultation. Renal ultrasound demonstrates no obstruction. History Interval history: 61-year-old female with history of valve replacement 2 presented through the emergency department status post V. fib arrest. Patient received multiple medications during the resuscitative efforts. Please see chart for details. Patient currently intubated on mechanical ventilation with amiodarone and Levophed drips infusing. Hospitalist Physical - Constitutional Vitals: Temp Pulse Resp BP Pulse Ox 97.5 F L 86 23 76/53 100 01/16/17 08:00 01/16/17 10:10 01/16/17 10:10 01/16/17 10:10 01/16/17 10:10 General appearance: Present: other (intubated on the vent) - EENT Eyes: Present: PERRL, EOM intact ENT: hearing intact, clear oral mucosa, dentition normal - Neck Neck: Present: supple, normal ROM - Respiratory Respiratory effort: normal Respiratory: bilateral: CTA - Cardiovascular Rhythm: regular Heart Sounds: Present: S1 & S2. Absent: gallop, rub - Extremities Extremities: no ischemia, No edema, Full ROM - Abdominal General gastrointestinal: soft, non-tender, non-distended, normal bowel sounds - Integumentary Integumentary: Present: clear, warm, dry - Neurologic Neurologic: CNII-XII intact, moves all extremities Results - Labs CBC & Chem 7: 01/16/17 09:45 01/16/17 04:04 Labs: Laboratory Last Values WBC 22.1 K/mm3 (4.5-11.0) H 01/16/17 04:04 RBC 3.98 M/mm3 (3.65-5.03) 01/16/17 04:04 Hgb 10.4 gm/dl (10.1-14.3) 01/16/17 09:45 Hct 32.0 % (30.3-42.9) D 01/16/17 09:45 MCV 98 fl (79-97) H 01/16/17 04:04 MCH 31 pg (28-32) 01/16/17 04:04 MCHC 31 % (30-34) 01/16/17 04:04 RDW 13.9 % (13.2-15.2) 01/16/17 04:04 Plt Count 262 K/mm3 (140-440) 01/16/17 09:45 PT 35.5 Sec. (12.2-14.9) H 01/16/17 09:45 INR 3.51 (0.87-1.13) H 01/16/17 09:45 APTT 39.1 Sec. (24.2-36.6) H 01/16/17 09:45 POC ABG pH 7.329 (7.35-7.45) L 01/16/17 06:00 POC ABG pCO2 31.5 (35-45) L 01/16/17 06:00 POC ABG pO2 98 (80-105) 01/16/17 06:00 POC ABG HCO3 16.6 01/16/17 06:00 POC ABG Total CO2 18 01/16/17 06:00 POC ABG O2 Sat 97 01/16/17 06:00 POC ABG Base Excess -9 01/16/17 06:00 FiO2 40 % 01/16/17 06:00 Sodium 140 mmol/L (137-145) 01/16/17 04:04 Potassium 3.4 mmol/L (3.6-5.0) L D 01/16/17 04:04 Chloride 102.8 mmol/L (98-107) 01/16/17 04:04 Carbon Dioxide 16 mmol/L (22-30) L 01/16/17 04:04 Anion Gap 25 mmol/L 01/16/17 04:04 BUN 34 mg/dL (7-17) H 01/16/17 04:04 Creatinine 3.6 mg/dL (0.7-1.2) H D 01/16/17 04:04 Estimated GFR 16 ml/min 01/16/17 04:04 BUN/Creatinine Ratio 9.44 % 01/16/17 04:04 Glucose 117 mg/dL (65-100) H 01/16/17 04:04 POC Glucose 125 (70-105) H 01/16/17 05:21 Lactic Acid 2.60 mmol/L (0.7-2.0) H* 01/16/17 05:13 Calcium 8.2 mg/dL (8.4-10.2) L 01/16/17 04:04 Magnesium 2.20 mg/dL (1.7-2.3) 01/16/17 04:04 Total Creatine Kinase 1105 units/L (30-135) H 01/15/17 13:10 CK-MB (CK-2) 74.8 ng/mL (0.0-4.0) H 01/15/17 13:10 CK-MB (CK-2) Rel Index 6.7 (0-4) H 01/15/17 13:10 Troponin T 2.160 ng/mL (0.00-0.029) H* 01/15/17 13:10 Triglycerides 132 mg/dL (2-149) 01/15/17 01:37 Cholesterol 112 mg/dL (50-199) 01/15/17 01:37 LDL Cholesterol Direct 48 mg/dL (50-130) L 01/15/17 01:37 HDL Cholesterol 38 mg/dL (40-59) L 01/15/17 01:37 Cholesterol/HDL Ratio 2.94 % 01/15/17 01:37 TSH 2.230 mlU/mL (0.270-4.200) 01/16/17 04:04
--- NOTE | 2017-01-16 11:00 | XRay Report ---
SUPINE KUB: History: Nasogastric tube placement. The abdominal gas pattern is unremarkable. No masses or organomegaly is identified and there is no gross evidence of free air or fluid. No significant soft tissue calcifications are noted. The nasogastric tube terminates in the mid stomach. IMPRESSION: Normal study.
[2017-01-16] MEDS ORDERED: D50W (25GM) IV PRN (11:01)
--- NOTE | 2017-01-16 11:33 | Progress Note ---
Assessment and Plan Out of the hospital cardiopulmonary arrest reported Vfib in the field Postarrest ECGs revealed nonspecific ST changes, not diagnostic for ST elevation infarct. on amiodarone drip and heparin drip Acute respiratory failure intubated on the vent Cardiomyopathy, uncertain duration EF 20-25% on echocardiogram this admission Lactic acidosis Leukocytosis Acute renal failure Hx of mechanical AVR and MVR on warfarin as an outpatient. INR 2.11 on presentation Hx of paroxysmal Afib Hx of CAD s/p 3v CABG Recommendations: Continue beta blockers, afterload reducing agents and anticoagulation with heparin while off Coumadin. Transition to oral amiodarone for suppression of Vfib. Obtain prior cardiac records from [facility] for review. Supportive cardiac management. Subjective Date of service: 01/16/17 Interval history: Patient remains intubated on the vent. Objective Vital Signs Temp Pulse Resp BP Pulse Ox 01/16/17 11:02 85 89/50 100 01/16/17 10:10 86 23 76/53 100 01/16/17 10:00 87 24 76/53 94 01/16/17 09:50 84 24 78/50 100 01/16/17 09:40 84 24 84/53 100 01/16/17 09:30 84 24 84/53 100 01/16/17 09:20 84 24 92/51 100 01/16/17 09:10 83 24 88/54 100 01/16/17 09:00 84 24 88/54 01/16/17 08:50 84 24 87/47 100 01/16/17 08:40 83 24 94/51 100 01/16/17 08:30 84 24 94/51 100 01/16/17 08:20 84 24 88/49 100 01/16/17 08:10 84 24 98/56 100 01/16/17 08:00 97.5 F L 85 14 98/56 100 01/16/17 07:51 83 85/44 100 01/16/17 07:50 84 24 85/44 100 01/16/17 07:40 84 24 107/59 100 01/16/17 07:30 84 23 107/59 100 01/16/17 07:20 84 24 102/65 100 01/16/17 07:10 84 24 102/61 100 01/16/17 07:00 83 24 102/61 100 01/16/17 06:50 84 24 107/66 100 05/16/17 06:40 85 24 108/65 100 05/16/17 06:30 84 24 108/65 05/16/17 06:20 84 24 89/59 100 05/16/17 06:15 84 21 10 L 05/16/17 06:10 84 24 95/64 100 05/16/17 06:00 84 20 95/64 100 05/16/17 05:50 85 22 158/70 100 05/16/17 05:40 84 24 98/65 100 05/16/17 05:30 83 24 98/65 100 05/16/17 05:20 82 24 103/55 100 05/16/17 05:10 82 24 104/60 99 05/16/17 05:00 82 24 104/60 05/16/17 04:50 82 24 111/61 99 05/16/17 04:47 83 97/58 100 05/16/17 04:40 83 24 121/68 100 05/16/17 04:30 83 24 121/68 100 05/16/17 04:20 83 24 109/72 100 05/16/17 04:19 97.6 F 05/16/17 04:15 98.8 F 84 21 97/58 10 L 0516/17 04:10 83 24 111/71 100 05/16/17 04:00 84 25 H 111/71 100 05/16/17 03:50 83 24 114/72 100 05/16/17 03:40 83 23 97/58 100 05/16/17 03:30 83 11 L 97/58 100 05/16/17 03:20 83 24 105/67 100 05/16/17 03:10 83 24 102/68 100 05/16/17 03:00 83 24 102/68 05/16/17 02:50 83 24 98/64 100 05/16/17 02:40 83 24 108/77 100 05/16/17 02:30 84 19 108/77 100 05/16/17 02:20 84 24 94/58 100 05/16/17 02:10 84 24 102/53 100 05/16/17 02:05 80 20 100 05/16/17 02:00 84 24 102/53 100 05/16/17 01:50 83 24 93/58 100 05/16/17 01:40 83 24 98/52 100 05/16/17 01:30 82 24 115/73 051617 01:20 82 17 115/73 100 0517 01:15 80 21 100 05 01:10 81 24 126/73 100 0517 01:00 81 22 126/73 100 05 00:50 81 18 122/71 100 05 00:40 81 24 126/74 100 05 00:30 81 20 126/74 100 0517 00:25 97.3 F L 01/16/17 00:20 81 24 125/59 100 05 00:10 81 24 125/59 100 05 00:00 81 21 125/59 100 05 23:55 97.3 F L 01/15/17 23:52 80 24 123/59 100 05 23:50 80 24 123/59 100 05 23:44 80 24 119/72 100 05 23:40 80 21 119/72 100 0517 23:30 78 18 119/72 100 05 23:20 83 24 121/74 100 05 23:10 80 24 125/76 100 05 23:05 80 22 100 05 23:00 80 24 125/76 100 0517 22:50 78 24 131/114 100 05 22:40 78 24 119/62 100 05 22:30 79 20 119/62 98 0517 22:20 80 20 123/66 98 05 22:10 77 17 118/52 99 05 22:05 80 20 100 05 22:00 77 20 118/52 98 0517 21:50 78 20 98/57 99 0517 21:40 77 20 101/55 99 051517 21:30 78 20 101/55 99 05/15/17 21:20 79 20 98/57 99 0517 21:10 79 20 102/55 99 0517 21:00 79 20 123/66 98 051517 20:50 82 20 110/59 99 05/15/17 20:40 78 20 95/47 99 0515/17 20:30 74 20 111/55 0515/17 20:20 74 20 111/55 99 15/17 20:10 78 20 108/52 99 0515/17 20:00 97.8 F 78 20 108/52 99 15/17 19:50 78 20 120/76 99 05/15/17 19:40 80 14 125/73 99 0515/17 19:30 79 20 125/73 99 0515/17 19:20 79 20 109/73 99 15/17 19:10 80 20 111/66 98 0515/17 19:00 79 17 111/66 98 15/17 18:50 78 9 L 131/63 98 15/17 18:40 79 9 L 133/64 99 15/17 18:30 79 13 86/55 99 15/17 18:20 76 16 86/55 99 15/17 18:10 79 16 112/69 98 15/17 18:00 80 0 L 107/57 0515/17 17:50 80 0 L 107/57 98 15/17 17:40 81 0 L 106/59 98 0515/17 17:30 80 0 L 106/59 99 0515/17 17:20 81 20 111/55 99 15/17 17:10 81 0 L 111/57 97 15/17 17:00 81 0 L 111/57 99 15/17 16:50 83 0 L 122/65 98 0515/17 16:40 81 0 L 126/65 98 0515/17 16:30 81 0 L 126/65 98 0515/17 16:20 81 0 L 119/61 99 05/15/17 16:10 81 5 L 88/58 98 0515/17 16:00 97.3 F L 76 9 L 88/58 99 0515/17 15:50 79 13 85/51 98 05/15/17 15:40 81 20 84/48 98 05/15/17 15:37 80 99 05/15/17 15:30 81 19 81/31 05/15/17 15:20 80 20 94/46 98 05/15/17 15:10 81 21 93/53 98 05/15/17 15:00 80 20 70/32 01/15/17 14:50 81 20 96/54 98 01/15/17 14:40 83 19 114/66 98 01/15/17 14:30 83 19 114/66 01/15/17 14:20 81 20 114/66 99 01/15/17 14:10 82 19 119/52 99 01/15/17 14:00 82 20 119/78 01/15/17 13:50 82 14 119/78 99 01/15/17 13:40 82 17 102/66 99 01/15/17 13:30 83 20 102/48 97 01/15/17 13:20 81 20 109/69 98 01/15/17 13:10 82 19 98/65 98 01/15/17 13:00 83 20 102/66 96 01/15/17 12:50 84 20 98/65 96 01/15/17 12:40 85 17 106/65 97 01/15/17 12:30 85 20 106/65 98 01/15/17 12:00 97.2 F L 01/15/17 11:58 84 98 - Physical Examination General: Other (intubated on the vent) Cardiac: Positive: Reg Rate and Rhythm - Labs and Meds Cardiac Enzymes 01/15/17 Range/Units 13:10 CK-MB (CK-2) 74.8 H (0.0-4.0) ng/mL Coagulation 01/16/17 Range/Units 09:45 PT 35.5 H (12.2-14.9) Sec. INR 3.51 H (0.87-1.13) APTT 39.1 H (24.2-36.6) Sec. CBC 01/16/17 01/16/17 Range/Units 04:04 09:45 WBC 22.1 H (4.5-11.0) K/mm3 RBC 3.98 (3.65-5.03) M/mm3 Hgb 12.1 10.4 (10.1-14.3) gm/dl Hct 38.8 D 32.0 D (30.3-42.9) % Plt Count 307 262 (140-440) K/mm3 Comprehensive Metabolic Panel 01/16/17 Range/Units 04:04 Sodium 140 (137-145) mmol/L Potassium 3.4 L D (3.6-5.0) mmol/L Chloride 102.8 (98-107) mmol/L Carbon Dioxide 16 L (22-30) mmol/L BUN 34 H (7-17) mg/dL Creatinine 3.6 H D (0.7-1.2) mg/dL Glucose 117 H (65-100) mg/dL Calcium 8.2 L (8.4-10.2) mg/dL - Imaging and Cardiology EKG: image reviewed
--- NOTE | 2017-01-16 11:35 | Progress Note ---
Assessment and Plan Out of hospital cardiac arrest with ROSC Ventricular tachycardia. Resolved Coronary artery disease Anoxic encephalopathy. No neurological improvement. Unable to start on hypothermia protocol yesterday Morbid obesity Hypertension Recommendations Discuss with cardiology use of Dobutrex if patient remains hypotensive keep blood pressure, MAP > 60 Cardiology follow-up If no further neurological improvement consider EEG/neurology consult DVT prophylaxis No family available. Prognosis poor is no obvious neurological improvement Critical care time was 40 minutes in [id number] evaluation and coordination of care Subjective Date of service: 01/16/17 Principal diagnosis: [id number] cardiac arrest, cardiomyopathy, anoxic encephalopathy Interval history: Intubated, unresponsive Objective Vital Signs - 12hr 01/15/17 01/15/17 01/15/17 23:40 23:44 23:50 Temperature Pulse Rate 80 80 80 Respiratory 21 24 24 Rate Blood Pressure 119/72 119/72 123/59 O2 Sat by Pulse 100 100 100 Oximetry 01/15/17 01/15/17 01/16/17 23:52 23:55 00:00 Temperature 97.3 F L Pulse Rate 80 81 Respiratory 24 21 Rate Blood Pressure 123/59 125/59 O2 Sat by Pulse 100 100 Oximetry 01/16/17 01/16/17 01/16/17 00:10 00:20 00:25 Temperature 97.3 F L Pulse Rate 81 81 Respiratory 24 24 Rate Blood Pressure 125/59 125/59 O2 Sat by Pulse 100 100 Oximetry 01/16/17 01/16/17 01/16/17 00:30 00:40 00:50 Temperature Pulse Rate 81 81 81 Respiratory 20 24 18 Rate Blood Pressure 126/74 126/74 122/71 O2 Sat by Pulse 100 100 100 Oximetry 01/16/17 01/16/17 01/16/17 01:00 01:10 01:15 Temperature Pulse Rate 81 81 80 Respiratory 22 24 21 Rate Blood Pressure 126/73 126/73 O2 Sat by Pulse 100 100 100 Oximetry 01/16/17 01/16/17 01/16/17 01:20 01:30 01:40 Temperature Pulse Rate 82 82 83 Respiratory 17 24 24 Rate Blood Pressure 115/73 115/73 98/52 O2 Sat by Pulse 100 100 Oximetry 01/16/17 01/16/17 01/16/17 01:50 02:00 02:05 Temperature Pulse Rate 83 84 80 Respiratory 24 24 20 Rate Blood Pressure 93/58 102/53 O2 Sat by Pulse 100 100 100 Oximetry 01/16/17 01/16/17 01/16/17 02:10 02:20 02:30 Temperature Pulse Rate 84 84 84 Respiratory 24 24 19 Rate Blood Pressure 102/53 94/58 108/77 O2 Sat by Pulse 100 100 100 Oximetry 01/16/17 01/16/17 01/16/17 02:40 02:50 03:00 Temperature Pulse Rate 83 83 83 Respiratory 24 24 24 Rate Blood Pressure 108/77 98/64 102/68 O2 Sat by Pulse 100 100 Oximetry 01/16/17 01/16/17 01/16/17 03:10 03:20 03:30 Temperature Pulse Rate 83 83 83 Respiratory 24 24 11 L Rate Blood Pressure 102/68 105/67 97/58 O2 Sat by Pulse 100 100 100 Oximetry 01/16/17 01/16/17 01/16/17 03:40 03:50 04:00 Temperature Pulse Rate 83 83 84 Respiratory 23 24 25 H Rate Blood Pressure 97/58 114/72 111/71 O2 Sat by Pulse 100 100 100 Oximetry 01/16/17 01/16/17 01/16/17 04:10 04:15 04:19 Temperature 98.8 F 97.6 F Pulse Rate 83 84 Respiratory 24 21 Rate Blood Pressure 111/71 97/58 O2 Sat by Pulse 100 10 L Oximetry 01/16/17 01/16/17 01/16/17 04:20 04:30 04:40 Temperature Pulse Rate 83 83 83 Respiratory 24 24 24 Rate Blood Pressure 109/72 121/68 121/68 O2 Sat by Pulse 100 100 100 Oximetry 01/16/17 01/16/17 01/16/17 04:47 04:50 05:00 Temperature Pulse Rate 83 82 82 Respiratory 24 24 Rate Blood Pressure 97/58 111/61 104/60 O2 Sat by Pulse 100 99 Oximetry 01/16/17 01/16/17 01/16/17 05:10 05:20 05:30 Temperature Pulse Rate 82 82 83 Respiratory 24 24 24 Rate Blood Pressure 104/60 103/55 98/65 O2 Sat by Pulse 99 100 100 Oximetry 01/16/17 01/16/17 01/16/17 05:40 05:50 06:00 Temperature Pulse Rate 84 85 84 Respiratory 24 22 20 Rate Blood Pressure 98/65 158/70 95/64 O2 Sat by Pulse 100 100 100 Oximetry 01/16/17 01/16/17 01/16/17 06:10 06:15 06:20 Temperature Pulse Rate 84 84 84 Respiratory 24 21 24 Rate Blood Pressure 95/64 89/59 O2 Sat by Pulse 100 10 L 100 Oximetry 01/16/17 01/16/17 01/16/17 06:30 06:40 06:50 Temperature Pulse Rate 84 85 84 Respiratory 24 24 24 Rate Blood Pressure 108/65 108/65 107/66 O2 Sat by Pulse 100 100 Oximetry 01/16/17 01/16/17 01/16/17 07:00 07:10 07:20 Temperature Pulse Rate 83 84 84 Respiratory 24 24 24 Rate Blood Pressure 102/61 102/61 102/65 O2 Sat by Pulse 100 100 100 Oximetry 01/16/17 01/16/17 01/16/17 07:30 07:40 07:50 Temperature Pulse Rate 84 84 84 Respiratory 23 24 24 Rate Blood Pressure 107/59 107/59 85/44 O2 Sat by Pulse 100 100 100 Oximetry 01/16/17 01/16/17 01/16/17 07:51 08:00 08:10 Temperature 97.5 F L Pulse Rate 83 85 84 Respiratory 14 24 Rate Blood Pressure 85/44 98/56 98/56 O2 Sat by Pulse 100 100 100 Oximetry 01/16/17 01/16/17 01/16/17 08:20 08:30 08:40 Temperature Pulse Rate 84 84 83 Respiratory 24 24 24 Rate Blood Pressure 88/49 94/51 94/51 O2 Sat by Pulse 100 100 100 Oximetry 01/16/17 01/16/17 01/16/17 08:50 09:00 09:10 Temperature Pulse Rate 84 84 83 Respiratory 24 24 24 Rate Blood Pressure 87/47 88/54 88/54 O2 Sat by Pulse 100 100 Oximetry 01/16/17 01/16/17 01/16/17 09:20 09:30 09:40 Temperature Pulse Rate 84 84 84 Respiratory 24 24 24 Rate Blood Pressure 92/51 84/53 84/53 O2 Sat by Pulse 100 100 100 Oximetry 01/16/17 01/16/17 01/16/17 09:50 10:00 10:10 Temperature Pulse Rate 84 87 86 Respiratory 24 24 23 Rate Blood Pressure 78/50 76/53 76/53 O2 Sat by Pulse 100 94 100 Oximetry 01/16/17 11:02 Temperature Pulse Rate 85 Respiratory Rate Blood Pressure 89/50 O2 Sat by Pulse 100 Oximetry Constitutional: no acute distress, other (morbidly obese female, intubated orally, in no respiratory distress.) ENT: oropharynx moist Neck: supple, other (large neck difficult to panel for JVD) Ascultation: Bilateral: clear, rhonchi (some sporadic, otherwise clear. No crackles) Cardiovascular: irregular rhythm Gastrointestinal: normoactive bowel sounds, non-distended Integumentary: normal Extremities: no cyanosis CBC and BMP: 01/16/17 09:45 01/16/17 04:04 ABG, PT/INR, D-dimer: ABG POC ABG pH 7.329 (7.35-7.45) L 01/16/17 06:00 POC ABG pCO2 31.5 (35-45) L 01/16/17 06:00 POC ABG pO2 98 (80-105) 01/16/17 06:00 POC ABG HCO3 16.6 01/16/17 06:00 POC ABG Total CO2 18 01/16/17 06:00 POC ABG O2 Sat 97 01/16/17 06:00 PT/INR, D-dimer PT 35.5 Sec. (12.2-14.9) H 01/16/17 09:45 INR 3.51 (0.87-1.13) H 01/16/17 09:45 Abnormal lab findings: Abnormal Labs 01/15/17 01/15/17 01/15/17 04:15 06:56 08:31 WBC MCV PT INR APTT POC ABG pH POC ABG pCO2 Sodium 136 L Potassium 5.3 H D Chloride 97.4 L Carbon Dioxide BUN 22 H Creatinine 2.0 H Glucose 442 H POC Glucose Lactic Acid 3.00 H* Calcium 7.8 L Total Creatine Kinase 762 H CK-MB (CK-2) 75.8 H CK-MB (CK-2) Rel Index 9.9 H Troponin T 1.810 H* D 01/15/17 01/15/17 01/16/17 13:10 16:08 04:04 WBC 22.1 H MCV 98 H PT INR APTT POC ABG pH 7.294 L POC ABG pCO2 Sodium Potassium Chloride Carbon Dioxide BUN Creatinine Glucose POC Glucose Lactic Acid Calcium Total Creatine Kinase 1105 H CK-MB (CK-2) 74.8 H CK-MB (CK-2) Rel Index 6.7 H Troponin T 2.160 H* 01/16/17 01/16/17 01/16/17 04:04 05:13 05:21 WBC MCV PT INR APTT POC ABG pH POC ABG pCO2 Sodium Potassium 3.4 L D Chloride Carbon Dioxide 16 L BUN 34 H Creatinine 3.6 H D Glucose 117 H POC Glucose 125 H Lactic Acid 2.60 H* Calcium 8.2 L Total Creatine Kinase CK-MB (CK-2) CK-MB (CK-2) Rel Index Troponin T 01/16/17 01/16/17 06:00 09:45 WBC MCV PT 35.5 H INR 3.51 H APTT 39.1 H POC ABG pH 7.329 L POC ABG pCO2 31.5 L Sodium Potassium Chloride Carbon Dioxide BUN Creatinine Glucose POC Glucose Lactic Acid Calcium Total Creatine Kinase CK-MB (CK-2) CK-MB (CK-2) Rel Index Troponin T Chest x-ray: report reviewed, image reviewed
[2017-01-16] MEDS: CORDARONE PO SCH ×2 (11:43→22:43)
--- NOTE | 2017-01-16 13:05 | Consultation ---
History of Present Illness Consult date: 01/16/17 Requesting physician: NICKIE LIN Reason for Consult: ? anoxic encephalopathy Chief complaint: AMS prohibits direct hx History of present illness: 61-year-old woman with a history of valve replacement x 2 and unknown other medical problems who presents to [facility] ED status post cardiac arrest on 01/15 early AM. Patient last known normal was 11:00-11:30 pm [id number]. She then she developed decreased responsiveness and shortness of breath. EMS received a call regarding respiratory distress approximately 11:30pm. They arrived on scene by 11:55 pm and patient was apneic. Initial rhythm identified was V. fib , she received epinephrine x 5 doses, 6 defibrillated shocks, 1 amp of bicarbonate, 1 amp of D50, 2 mg Narcan, and Amiodarone 300 mg. Patient was intubated. EMS reports that patient had temporarily return of spontaneous circulation prior to arrival. Patient received 1 defibrillator shock, epinephrine 1 mg, and amiodarone 150 IV push. Positive return of spontaneous circulation with palpable pulse with systolic blood pressure above 100. Unclear down time. Sx of AMS constant. There are no clear aggravating, relieving or temporal factors. Severity was enough to cause persistent coma. Past History Past Medical History: acute [place], CAD Past Surgical History: Other (AMS limits direct hx) Social history: Family history: other (AMS limits direct hx) Medications and Allergies Allergies Allergy/AdvReac Type Severity Reaction Status Date / Time No Known Allergies Allergy Verified 12/10/15 07:53 Home Medications Medication Instructions Recorded Confirmed Last Taken Type Aspirin [Aspirin Enteric Coated] 81 mg PO DAILY 08/28/13 01/15/17 12/09/15 History Esomeprazole Magnesium [Nexium] 40 mg PO DAILY 08/28/13 01/15/17 12/09/15 History Metoprolol [Lopressor TAB] 25 mg PO Q12H 08/28/13 01/15/17 12/09/15 History Potassium 20 meq PO DAILY 08/28/13 01/15/17 12/09/15 History Docusate Sodium [Colace CAP] 100 mg PO BID PRN 12/10/15 01/15/17 12/09/15 History Gabapentin [Neurontin] 300 mg PO BID 04/08/16 05/15/17 04/07/16 History Losartan Potassium [Losartan 25 mg PO DAILY 12/10/15 01/15/17 12/09/15 History Potassium] Rosuvastatin (Nf) [Crestor] 20 mg PO QHS 12/10/15 01/15/17 12/08/15 History Torsemide [Torsemide] 20 mg PO DAILY 12/10/15 01/15/17 12/09/15 History Warfarin [Coumadin] 2.5 mg PO DAILY 12/10/15 01/15/17 12/08/15 History Baclofen 5 mg PO DAILY PRN 01/15/17 01/15/17 Unknown History Topiramate [Topamax] 50 mg PO BID 01/15/17 01/15/17 Unknown History Active Meds: Active Medications Amiodarone HCl (Cordarone) 200 mg PO BID [facility] Last Admin: 01/16/17 11:43 Dose: 200 mg Lipase/Protease/Amylase (Pancreaze Dr 10,500 Unit) 1 each FEEDTUBE PRN PRN PRN Reason: For Clogged Feeding Tube Dextrose (D50w (25gm)) 50 ml IV PRN PRN PRN Reason: Hypoglycemia Hydrophilic Ointment (Vaseline Lip Therapy) 1 applic TP Q2HR PRN PRN Reason: Dry Lips Amiodarone HCl 900 mg/ (Dextrose) 500 mls @ 33.33 mls/hr IV DIRECT VALERIA; 1 MG /MIN PRN Reason: Protocol Last Admin: 01/15/17 23:41 Dose: 0.5 mg/min, 16.66 mls/hr Piperacillin Sod/Tazobactam Sod (Zosyn/Ns 4.5gm/100ml) 4.5 gm in 100 mls @ 200 mls/hr IV Q8HR VALERIA PRN Reason: Protocol Last Admin: 01/16/17 05:48 Dose: 200 mls/hr Norepinephrine (Levophed Drip 4 Mg/Ns 250 Ml) 4 mg in 250 mls @ 7.5 mls/hr IV TITR VALERIA; 2 MCG/MIN PRN Reason: Protocol Last Admin: 01/16/17 12:29 Dose: 28 mcg/min, 105 mls/hr Heparin Sodium/Sodium Chloride (Heparin/ 0.45% Nacl-25,000 Unit/500 Ml) 500 mls @ 38.102 mls/hr IV TITR VALERIA; 15 UNITS/KG/HR PRN Reason: Protocol Insulin Human Regular (Novolin R) 0 units SUB-Q Q6HR VALERIA PRN Reason: Protocol Last Admin: 01/16/17 12:03 Dose: Not Given Multi-Ingred Cream/Lotion/Oil/Oint (Artificial Tears Ophth Oint) 1 applic OU Q4HR PRN PRN Reason: Dry Eye(s) Simple Syrup (Simple Syrup) 15 ml FEEDTUBE PRN PRN PRN Reason: Hypoglycemia Simple Syrup (Simple Syrup) 30 ml FEEDTUBE PRN PRN PRN Reason: Hypoglycemia Sodium Bicarbonate (Sodium Bicarbonate) 325 mg FEEDTUBE PRN PRN PRN Reason: For Clogged Feeding Tube Sodium Chloride (Nacl 0.9% 500 Ml) 1 ml IV DIRECT VALERIA Review of Systems ROS unobtainable: due to endotracheal tube, due to mental status Physical Examination - Vital Signs Vital Signs: Vital Signs Pulse BP Pulse Ox 72 110/92 95 01/15/17 00:40 01/15/17 00:40 01/15/17 00:40 - Constitutional General appearance: acutely ill - EENT EENT: Present: ATNC, mucous membranes dry - Respiratory Respiratory: Present: chest non-tender, decreased breath sounds - Cardiovascular Cardiovascular: Present: regular rate Extremities: Present: no peripheral edema bilatateraly, no clubbing, cyanosis, no inflammation, no ischemia or petechiae - Gastrointestinal Gastrointestinal: Present: soft, non-distended - Integumentary Integumentary: Present: normal - Neurologic Cranial nerve examination: other (pupils 7-8 mm fixed dilated, no corneal reflex , no OCR, neg cold calorics, no gag) Detailed motor examination: other (no movement to proximal pain) Detailed sensory examination: other (no response to pain) Reflexes: 0: ankle, bicep, knee, tricep - Musculoskeletal Musculoskeletal: Present: no fluid collection, no pain, normal range of motion Results - Laboratory Findings CBC and BMP: 01/16/17 09:45 01/16/17 04:04 Abnormal Lab Findings: Abnormal Labs 01/15/17 01/15/17 01/15/17 04:15 06:56 08:31 WBC MCV PT INR APTT POC ABG pH POC ABG pCO2 Sodium 136 L Potassium 5.3 H D Chloride 97.4 L Carbon Dioxide BUN 22 H Creatinine 2.0 H Glucose 442 H POC Glucose Lactic Acid 3.00 H* Calcium 7.8 L Total Creatine Kinase 762 H CK-MB (CK-2) 75.8 H CK-MB (CK-2) Rel Index 9.9 H Troponin T 1.810 H* D 01/15/17 01/15/17 01/16/17 13:10 16:08 04:04 WBC 22.1 H MCV 98 H PT INR APTT POC ABG pH 7.294 L POC ABG pCO2 Sodium Potassium Chloride Carbon Dioxide BUN Creatinine Glucose POC Glucose Lactic Acid Calcium Total Creatine Kinase 1105 H CK-MB (CK-2) 74.8 H CK-MB (CK-2) Rel Index 6.7 H Troponin T 2.160 H* 01/16/17 01/16/17 01/16/17 04:04 05:13 05:21 WBC MCV PT INR APTT POC ABG pH POC ABG pCO2 Sodium Potassium 3.4 L D Chloride Carbon Dioxide 16 L BUN 34 H Creatinine 3.6 H D Glucose 117 H POC Glucose 125 H Lactic Acid 2.60 H* Calcium 8.2 L Total Creatine Kinase CK-MB (CK-2) CK-MB (CK-2) Rel Index Troponin T 01/16/17 01/16/17 06:00 09:45 WBC MCV PT 35.5 H INR 3.51 H APTT 39.1 H POC ABG pH 7.329 L POC ABG pCO2 31.5 L Sodium Potassium Chloride Carbon Dioxide BUN Creatinine Glucose POC Glucose Lactic Acid Calcium Total Creatine Kinase CK-MB (CK-2) CK-MB (CK-2) Rel Index Troponin T Assessment and Plan 61-year-old woman p/w OOH cardiac arrest ? down time s/p prolonged ACLS. Pt has not received any sedative meds for > 24 hrs. On neurologic exam pt has no brainstem reflexes (absent pupillary light response, corneal reflex, OCR, cold caloric response or gag) and no movement reflexic or purposeful to proximal/ distal noxious stimulation. She meets clinical criteria for cerebral brain 2/2 anoxic-ischemic encephalopathy. Recommendations: 1. Neuro checks 2. STAT CTH to r/o alternative etiologies 3. Repeat examination by electrolysis operator to confirm brain 4. Apnea test to confirm no triggered respirations 5. Cerebral blood flow radionucleotide scan as needed per hospital protocol 6. I have had extensive discussion @ bedside today w/ pt's son who understand Dx and condition as well as plan to confirm brain
[2017-01-16] MEDS: PITRESSin 20 UNIT in NACL 0.9% 100 ML IV SCH ×2 (14:51→22:46)
[2017-01-16] MEDS: LEVOPHED 8 MG in NACL 0.9% 250ML 242 ML IV SCH (20:44)
[2017-01-17] MEDS: LEVOPHED 8 MG in NACL 0.9% 250ML 242 ML IV SCH ×2 (01:01→10:13)
[2017-01-17] MEDS: CORDARONE PO SCH (09:21)
[2017-01-17 09:28] LABS: ISTAT Base Excess -7; ISTAT HCO3 18.7; ISTAT PCO2 35.7 (35-45); ISTAT PH 7.328 (7.35-7.45); ISTAT PO2 101 (80-105); ISTAT SO2 97; ISTAT TCO2 20
[2017-01-17] MEDS ORDERED: PEPCID IV SCH (10:00)
--- NOTE | 2017-01-17 10:01 | XRay Report ---
AP CHEST :01/17/17 02:17 CLINICAL: Intubated.Follow up respiratory failure. COMPARISON:Previous day. FINDINGS: The endotracheal tube is in satisfactory position. A feeding tube is satisfactory. No other tubes or lines. Mild cardiomegaly. The pulmonary vessels are now normal. A larger band of opacity in the right upper lobe is either fluid in the fissure or subsegmental atelectasis. Lungs are otherwise clear. No pneumothorax. IMPRESSION: Interval improvement except for increased fluid in the right minor fissure or subsegmental atelectasis of the right upper lobe.
--- NOTE | 2017-01-17 11:00 | Cat Scan Report ---
CT head without contrast: AMS. Axial images demonstrates a diffusely decreased low attenuation throughout the cerebellum, brainstem, and cerebral tissues. The ventricles are compressed but appear midline. No hemorrhage identified. The visualized bony structures are unremarkable. There is extensive mucoperiosteal thickening in the paranasal sinuses. Impressions: Diffuse cerebral edema.
--- NOTE | 2017-01-17 11:32 | Event Note ---
Date: 01/17/17 I attempted to see patient between my scheduled coverage time of 8 AM-12 PM but they were not present in the floor room. I will return to staff in f/u 11/18 if still present. CTH, apnea test, repeat clinical exam for brain but steam roller operator and radionucleotide cerebral blood flow scan all still pending at this time. 61-year-old woman p/w OOH cardiac arrest ? down time s/p prolonged ACLS. Pt has not received any sedative meds for > 24 hrs. On neurologic exam pt has no brainstem reflexes (absent pupillary light response, corneal reflex, OCR, cold caloric response or gag) and no movement reflexic or purposeful to proximal/ distal noxious stimulation. She meets clinical criteria for cerebral brain 2/2 anoxic-ischemic encephalopathy. Recommendations: 1. Neuro checks 2. STAT CTH to r/o alternative etiologies: delayed d/t hypotension 3. Repeat examination by steam roller operator to confirm brain 4. Apnea test to confirm no triggered respirations as tolerated. 5. Cerebral blood flow radionucleotide scan as needed per hospital protocol 6. I have had extensive discussion @ bedside 01/16 w/ pt's son who understand Dx and condition as well as plan to confirm brain
--- NOTE | 2017-01-17 11:33 | Progress Note ---
Assessment and Plan Out of hospital cardiac arrest with ROSC Ventricular tachycardia. Resolved Coronary artery disease Anoxic encephalopathy. No neurological improvement. Possible brain that scenario. She also neurology evaluation and recommendations Morbid obesity Hypertension Recommendations Discussed patient findings with the family in detail. Also earlier yesterday with neurology. I see no clinical findings of meaningful brain function, on clinical examination Brain perfusion scan to be done this morning for further evaluation I deferred apnea test at this time since the patient's she achieved at the bedside was below 35. We'll decrease RR support and if ABGs are on adequate range, perform this later. If brain perfusion scan shows no brain activity, this is probably academic DVT prophylaxis Prognosis poor is no obvious neurological improvement Critical care time was 35 minutes in [id number] evaluation and coordination of care Subjective Date of service: 01/17/17 Principal diagnosis: [id number] cardiac arrest, cardiomyopathy, anoxic encephalopathy Interval history: Patient remains intubated. Not on sedation at this time Objective Vital Signs - 12hr 01/16/17 01/16/17 01/17/17 23:30 23:45 00:00 Temperature 98.9 F Pulse Rate 93 H 92 H 93 H Respiratory 24 24 24 Rate Blood Pressure 106/56 99/55 96/50 O2 Sat by Pulse 100 100 100 Oximetry 01/17/17 01/17/17 01/17/17 00:15 00:30 00:45 Temperature Pulse Rate 93 H 93 H 93 H Respiratory 24 24 24 Rate Blood Pressure 116/51 105/40 110/55 O2 Sat by Pulse 100 100 100 Oximetry 01/17/17 01/17/17 01/17/17 01:00 01:15 01:30 Temperature Pulse Rate 92 H 93 H 93 H Respiratory 24 24 24 Rate Blood Pressure 109/56 98/53 111/52 O2 Sat by Pulse 100 100 99 Oximetry 01/17/17 01/17/17 01/17/17 01:45 02:00 02:08 Temperature Pulse Rate 93 H 94 H 96 H Respiratory 24 24 Rate Blood Pressure 105/58 109/59 109/59 O2 Sat by Pulse 99 99 98 Oximetry 01/17/17 01/17/17 01/17/17 02:15 02:30 02:45 Temperature Pulse Rate 96 H 94 H 93 H Respiratory 24 24 24 Rate Blood Pressure 125/61 104/62 111/66 O2 Sat by Pulse 100 99 100 Oximetry 0501/17/17 01/17/17 03:00 03:15 03:30 Temperature Pulse Rate 93 H 93 H 93 H Respiratory 24 24 24 Rate Blood Pressure 116/69 122/68 123/67 O2 Sat by Pulse 100 100 100 Oximetry 01/17/17 01/17/17 01/17/17 03:45 04:00 04:15 Temperature Pulse Rate 93 H 95 H 94 H Respiratory 24 16 24 Rate Blood Pressure 122/57 122/57 91/50 O2 Sat by Pulse 100 98 99 Oximetry 01/17/17 01/17/17 01/17/17 04:30 04:45 05:00 Temperature Pulse Rate 95 H 94 H 94 H Respiratory 24 24 24 Rate Blood Pressure 92/56 98/62 105/58 O2 Sat by Pulse 99 100 100 Oximetry 01/17/17 01/17/17 01/17/17 05:16 05:30 05:45 Temperature Pulse Rate 112 H 100 H 96 H Respiratory 24 21 24 Rate Blood Pressure 79/39 79/39 99/56 O2 Sat by Pulse 96 100 99 Oximetry 01/17/17 01/17/17 01/17/17 06:00 06:15 06:30 Temperature Pulse Rate 95 H 95 H 95 H Respiratory 24 24 24 Rate Blood Pressure 103/60 98/58 102/57 O2 Sat by Pulse 99 99 99 Oximetry 01/17/17 01/17/17 01/17/17 06:45 07:00 07:15 Temperature Pulse Rate 94 H 95 H 94 H Respiratory 24 24 24 Rate Blood Pressure 102/55 107/59 113/45 O2 Sat by Pulse 100 100 99 Oximetry 01/17/17 01/17/17 01/17/17 07:30 07:45 08:00 Temperature 98.1 F Pulse Rate 94 H 95 H 95 H Respiratory 24 24 24 Rate Blood Pressure 106/65 96/57 92/55 O2 Sat by Pulse 100 100 100 Oximetry 01/17/17 01/17/17 01/17/17 08:13 08:15 08:30 Temperature Pulse Rate 95 H 95 H 95 H Respiratory 24 24 Rate Blood Pressure 96/57 93/54 97/53 O2 Sat by Pulse 99 99 100 Oximetry 01/17/17 01/17/17 01/17/17 08:45 09:00 09:15 Temperature Pulse Rate 95 H 95 H 96 H Respiratory 20 20 20 Rate Blood Pressure 93/57 98/49 96/48 O2 Sat by Pulse 100 100 100 Oximetry Constitutional: no acute distress, other (morbidly obese female, intubated orally, in no respiratory distress.) ENT: oropharynx moist Neck: supple, other (large neck difficult to panel for JVD) Ascultation: Bilateral: clear Cardiovascular: irregular rhythm Gastrointestinal: soft, non-distended Integumentary: normal Extremities: no cyanosis Neurologic: other (patient's shows no reflexes on examination to pain pupils remain nonreactive, no corneals. No posturing on pain stimulation.) CBC and BMP: 01/16/17 09:45 01/16/17 04:04 ABG, PT/INR, D-dimer: ABG POC ABG pH 7.328 (7.35-7.45) L 01/17/17 05:53 POC ABG pCO2 35.7 (35-45) 01/17/17 05:53 POC ABG pO2 101 (80-105) 01/17/17 05:53 POC ABG HCO3 18.7 01/17/17 05:53 POC ABG Total CO2 20 01/17/17 05:53 POC ABG O2 Sat 97 01/17/17 05:53 PT/INR, D-dimer PT 35.5 Sec. (12.2-14.9) H 01/16/17 09:45 INR 3.51 (0.87-1.13) H 01/16/17 09:45 Abnormal lab findings: Abnormal Labs 01/15/17 01/15/17 01/15/17 04:15 06:56 08:31 WBC MCV PT INR APTT POC ABG pH POC ABG pCO2 Sodium 136 L Potassium 5.3 H D Chloride 97.4 L Carbon Dioxide BUN 22 H Creatinine 2.0 H Glucose 442 H POC Glucose Lactic Acid 3.00 H* Calcium 7.8 L Total Creatine Kinase 762 H CK-MB (CK-2) 75.8 H CK-MB (CK-2) Rel Index 9.9 H Troponin T 1.810 H* D 01/15/17 01/15/17 01/16/17 13:10 16:08 04:04 WBC 22.1 H MCV 98 H PT INR APTT POC ABG pH 7.294 L POC ABG pCO2 Sodium Potassium Chloride Carbon Dioxide BUN Creatinine Glucose POC Glucose Lactic Acid Calcium Total Creatine Kinase 1105 H CK-MB (CK-2) 74.8 H CK-MB (CK-2) Rel Index 6.7 H Troponin T 2.160 H* 01/16/17 01/16/17 01/16/17 04:04 05:13 05:21 WBC MCV PT INR APTT POC ABG pH POC ABG pCO2 Sodium Potassium 3.4 L D Chloride Carbon Dioxide 16 L BUN 34 H Creatinine 3.6 H D Glucose 117 H POC Glucose 125 H Lactic Acid 2.60 H* Calcium 8.2 L Total Creatine Kinase CK-MB (CK-2) CK-MB (CK-2) Rel Index Troponin T 01/16/17 01/16/17 01/16/17 06:00 09:45 11:45 WBC MCV PT 35.5 H INR 3.51 H APTT 39.1 H POC ABG pH 7.329 L POC ABG pCO2 31.5 L Sodium Potassium Chloride Carbon Dioxide BUN Creatinine Glucose POC Glucose 127 H Lactic Acid Calcium Total Creatine Kinase CK-MB (CK-2) CK-MB (CK-2) Rel Index Troponin T 01/16/17 01/16/17 01/17/17 17:46 23:32 05:47 WBC MCV PT INR APTT POC ABG pH POC ABG pCO2 Sodium Potassium Chloride Carbon Dioxide BUN Creatinine Glucose POC Glucose 110 H 128 H 133 H Lactic Acid Calcium Total Creatine Kinase CK-MB (CK-2) CK-MB (CK-2) Rel Index Troponin T 01/17/17 05:53 WBC MCV PT INR APTT POC ABG pH 7.328 L POC ABG pCO2 Sodium Potassium Chloride Carbon Dioxide BUN Creatinine Glucose POC Glucose Lactic Acid Calcium Total Creatine Kinase CK-MB (CK-2) CK-MB (CK-2) Rel Index Troponin T
--- NOTE | 2017-01-17 11:36 | Progress Note ---
Assessment and Plan Assessment and plan: s/p V. fib arrest. Continue amiodarone drip. Cardiology following. Echocardiogram pending. Anoxic encephalopathy. CT scan of the head pending. Consider apnea test per pulmonary. Patient may need cerebral blood flow study to confirm brain . We will discuss with pulmonary. Coronary artery disease. Patient reportedly has an extensive cardiac history with CABG 3. Patient also with mechanical valve replacements x 2 and coronary stenting. Continue supportive therapies including beta blockers, afterload reducing agents and anticoagulation. Follow-up old records at [facility]. Acute hypoxic respiratory failure. Pulmonary following. Continue mechanical ventilation per pulmonary. Shock. Etiology may be secondary to sepsis +/-cardiogenic. Patient with significant leukocytosis(29.8) and lactic acidosis(7.2) on admission. Patient currently on Levophed drip. Continue sepsis pathway and IV antibiotics. Follow -up cultures and trend lactic acid levels. Echocardiogram reveals left ventricular ejection fraction at 20-25% with the appearance of well-functioning mechanical mitral valve and bio-prosthetic aortic valve. Elevated troponin. Etiology secondary to #1. Acute renal failure. Etiology secondary to acute kidney injury from ATN/sepsis/ hypoperfusion. Nephrology following. Renal ultrasound demonstrates no obstruction. History Interval history: 61-year-old female with history of valve replacement 2 presented through the emergency department status post V. fib arrest. Patient received multiple medications during the resuscitative efforts. Please see chart for details. Patient currently intubated on mechanical ventilation with amiodarone, vasopressin and Levophed drips infusing. Hospitalist Physical - Constitutional Vitals: Temp Pulse Resp BP Pulse Ox 98.1 F 104 H 20 86/47 95 01/17/17 08:00 01/17/17 11:16 01/17/17 11:16 01/17/17 11:16 01/17/17 11:16 General appearance: Present: other (intubated on the vent) - EENT Eyes: Present: PERRL, EOM intact ENT: hearing intact, clear oral mucosa, dentition normal - Neck Neck: Present: supple, normal ROM - Respiratory Respiratory effort: normal Respiratory: bilateral: CTA - Cardiovascular Rhythm: regular Heart Sounds: Present: S1 & S2. Absent: gallop, rub - Extremities Extremities: no ischemia, No edema, Full ROM - Abdominal General gastrointestinal: soft, non-tender, non-distended, normal bowel sounds - Integumentary Integumentary: Present: clear, warm, dry - Neurologic Neurologic: CNII-XII intact, moves all extremities Results - Labs CBC & Chem 7: 01/16/17 09:45 01/16/17 04:04 Labs: Laboratory Last Values WBC 22.1 K/mm3 (4.5-11.0) H 01/16/17 04:04 RBC 3.98 M/mm3 (3.65-5.03) 01/16/17 04:04 Hgb 10.4 gm/dl (10.1-14.3) 01/16/17 09:45 Hct 32.0 % (30.3-42.9) D 01/16/17 09:45 MCV 98 fl (79-97) H 01/16/17 04:04 MCH 31 pg (28-32) 01/16/17 04:04 MCHC 31 % (30-34) 01/16/17 04:04 RDW 13.9 % (13.2-15.2) 01/16/17 04:04 Plt Count 262 K/mm3 (140-440) 01/16/17 09:45 PT 35.5 Sec. (12.2-14.9) H 01/16/17 09:45 INR 3.51 (0.87-1.13) H 01/16/17 09:45 APTT 39.1 Sec. (24.2-36.6) H 01/16/17 09:45 POC ABG pH 7.328 (7.35-7.45) L 01/17/17 05:53 POC ABG pCO2 35.7 (35-45) 01/17/17 05:53 POC ABG pO2 101 (80-105) 01/17/17 05:53 POC ABG HCO3 18.7 01/17/17 05:53 POC ABG Total CO2 20 01/17/17 05:53 POC ABG O2 Sat 97 01/17/17 05:53 POC ABG Base Excess -7 01/17/17 05:53 FiO2 40 % 01/17/17 05:53 Sodium 140 mmol/L (137-145) 01/16/17 04:04 Potassium 3.4 mmol/L (3.6-5.0) L D 01/16/17 04:04 Chloride 102.8 mmol/L (98-107) 01/16/17 04:04 Carbon Dioxide 16 mmol/L (22-30) L 01/16/17 04:04 Anion Gap 25 mmol/L 01/16/17 04:04 BUN 34 mg/dL (7-17) H 01/16/17 04:04 Creatinine 3.6 mg/dL (0.7-1.2) H D 01/16/17 04:04 Estimated GFR 16 ml/min 01/16/17 04:04 BUN/Creatinine Ratio 9.44 % 01/16/17 04:04 Glucose 117 mg/dL (65-100) H 01/16/17 04:04 POC Glucose 133 (70-105) H 01/17/17 05:47 Lactic Acid 2.60 mmol/L (0.7-2.0) H* 01/16/17 05:13 Calcium 8.2 mg/dL (8.4-10.2) L 01/16/17 04:04 Magnesium 2.20 mg/dL (1.7-2.3) 01/16/17 04:04 Total Creatine Kinase 1105 units/L (30-135) H 01/15/17 13:10 CK-MB (CK-2) 74.8 ng/mL (0.0-4.0) H 01/15/17 13:10 CK-MB (CK-2) Rel Index 6.7 (0-4) H 01/15/17 13:10 Troponin T 2.160 ng/mL (0.00-0.029) H* 01/15/17 13:10 Triglycerides 132 mg/dL (2-149) 01/15/17 01:37 Cholesterol 112 mg/dL (50-199) 01/15/17 01:37 LDL Cholesterol Direct 48 mg/dL (50-130) L 01/15/17 01:37 HDL Cholesterol 38 mg/dL (40-59) L 01/15/17 01:37 Cholesterol/HDL Ratio 2.94 % 01/15/17 01:37 TSH 2.230 mlU/mL (0.270-4.200) 01/16/17 04:04
--- NOTE | 2017-01-17 11:46 | Progress Note ---
Assessment and Plan Out of the hospital cardiopulmonary arrest reported Vfib in the field Postarrest ECGs revealed nonspecific ST changes, not diagnostic for ST elevation infarct. on amiodarone Acute respiratory failure intubated on the vent Anoxic encephalopathy Cardiomyopathy, uncertain duration EF 20-25% on echocardiogram this admission Lactic acidosis Leukocytosis Acute renal failure Hx of mechanical AVR and MVR on warfarin as an outpatient. INR 2.11 on presentation Hx of paroxysmal Afib Hx of CAD s/p 3v CABG Supportive cardiac management. Subjective Date of service: 01/17/17 Principal diagnosis: [id number] cardiac arrest, cardiomyopathy, anoxic encephalopathy Interval history: Patient remains intubated on the vent. Objective Vital Signs Temp Pulse Resp BP Pulse Ox 01/17/17 11:16 104 H 20 86/47 95 01/17/17 11:00 101 H 14 90/53 98 01/17/17 10:45 104 H 20 84/50 100 01/17/17 10:42 103 H 20 89/43 100 01/17/17 10:15 87/51 01/17/17 10:00 103 H 20 87/51 100 01/17/17 09:45 97 H 20 93/47 100 01/17/17 09:30 97 H 20 91/52 100 01/17/17 09:15 96 H 20 96/48 100 01/17/17 09:00 95 H 20 98/49 100 01/17/17 08:45 95 H 20 93/57 100 01/17/17 08:30 95 H 24 97/53 100 01/17/17 08:15 95 H 24 93/54 99 01/17/17 08:13 95 H 96/57 99 01/17/17 08:00 98.1 F 95 H 24 92/55 100 01/17/17 07:45 95 H 24 96/57 100 01/17/17 07:30 94 H 24 106/65 100 01/17/17 07:15 94 H 24 113/45 99 01/17/17 07:00 95 H 24 107/59 100 01/17/17 06:45 94 H 24 102/55 100 01/17/17 06:30 95 H 24 102/57 99 01/17/17 06:15 95 H 24 98/58 99 01/17/17 06:00 95 H 24 103/60 99 01/17/17 05:45 96 H 24 99/56 99 01/17/17 05:30 100 H 21 79/39 100 01/17/17 05:16 112 H 24 79/39 96 01/17/17 05:00 94 H 24 105/58 100 01/17/17 04:45 94 H 24 98/62 100 01/17/17 04:30 95 H 24 92/56 99 01/17/17 04:15 94 H 24 91/50 99 01/17/17 04:00 95 H 16 122/57 98 01/17/17 03:45 93 H 24 122/57 100 01/17/17 03:30 93 H 24 123/67 100 01/17/17 03:15 93 H 24 122/68 100 01/17/17 03:00 93 H 24 116/69 100 01/17/17 02:45 93 H 24 111/66 100 01/17/17 02:30 94 H 24 104/62 99 01/17/17 02:15 96 H 24 125/61 100 01/17/17 02:08 96 H 109/59 98 01/17/17 02:00 94 H 24 109/59 99 01/17/17 01:45 93 H 24 105/58 99 01/17/17 01:30 93 H 24 111/52 99 01/17/17 01:15 93 H 24 98/53 100 01/17/17 01:00 92 H 24 109/56 100 01/17/17 00:45 93 H 24 110/55 100 01/17/17 00:30 93 H 24 105/40 100 01/17/17 00:15 93 H 24 116/51 100 01/17/17 00:00 98.9 F 93 H 24 96/50 100 01/16/17 23:45 92 H 24 99/55 100 01/16/17 23:30 93 H 24 106/56 100 01/16/17 23:15 92 H 24 96/52 99 01/16/17 23:00 92 H 24 95/55 99 01/16/17 22:45 92 H 24 103/57 99 01/16/17 22:30 92 H 24 99/51 99 01/16/17 22:15 92 H 24 98/50 99 01/16/17 22:00 92 H 24 104/55 99 01/16/17 21:45 92 H 24 107/57 98 05/16/17 21:30 92 H 24 113/56 98 05/16/17 21:15 91 H 24 114/60 99 05/16/17 21:00 91 H 24 78/47 98 05/16/17 20:45 92 H 24 92/53 98 05/16/17 20:30 98 H 14 99/59 99 05/16/17 20:15 98 H 24 78/47 100 05/16/17 20:00 98.6 F 89 24 92/55 100 05/16/17 19:55 99.1 F 05/16/17 19:45 88 24 99/59 100 05/16/17 19:30 88 25 H 92/54 100 05/16/17 19:15 87 24 100/57 99 05/16/17 19:00 88 24 93/58 100 05/16/17 18:20 86 24 102/63 100 05/16/17 18:10 86 24 104/65 100 05/16/17 18:06 87 104/65 100 05/16/17 18:00 87 24 104/65 100 05/16/17 17:50 86 24 111/62 100 05/16/17 17:40 86 24 105/64 100 05/16/17 17:30 85 24 105/64 100 05/16/17 17:20 85 24 88/51 100 05/16/17 17:10 85 24 95/57 100 05/16/17 17:00 85 24 95/57 100 05/16/17 16:50 86 24 96/60 100 05/16/17 16:40 85 24 99/61 100 05/16/17 16:30 85 24 99/61 100 05/16/17 16:20 86 24 105/62 100 05/16/17 16:10 86 24 116/67 100 05/16/17 16:00 97.5 F L 86 24 116/67 100 05/16/17 15:50 87 24 137/76 100 05/16/17 15:40 87 24 138/75 100 05/16/17 15:30 87 24 117/83 100 05/16/17 15:20 91 H 22 117/83 99 05/16/17 15:10 91 H 24 121/71 99 05/16/17 15:00 89 5 L 85/47 99 05/16/17 14:50 92 H 24 85/47 100 01/16/17 14:40 93 H 24 81/46 100 01/16/17 14:30 92 H 24 81/46 99 01/16/17 14:20 93 H 24 83/48 100 01/16/17 14:10 93 H 24 79/45 98 01/16/17 14:00 94 H 24 79/45 98 01/16/17 13:50 92 H 24 72/42 98 01/16/17 13:42 85/53 01/16/17 13:35 88 100 01/16/17 13:20 87 24 85/53 100 01/16/17 13:10 87 24 90/53 100 01/16/17 13:00 87 24 90/53 01/16/17 12:50 87 24 87/52 100 01/16/17 12:40 87 24 84/49 100 01/16/17 12:30 87 24 83/51 100 01/16/17 12:20 87 24 90/49 01/16/17 12:10 86 24 84/49 01/16/17 12:00 97.5 F L 86 24 84/49 100 01/16/17 11:50 86 24 87/54 100 - Physical Examination General: Other (intubated on the vent) Cardiac: Positive: Reg Rate and Rhythm - Imaging and Cardiology EKG: image reviewed
[2017-01-17] MEDS ORDERED: ZOSYN/NS 2.25 GM/50ML 2.25 GM/50 ML BAG IV SCH (12:00)
--- NOTE | 2017-01-17 13:24 | Nuclear Medicine Report ---
BRAIN FLOW STUDY INDICATION: Anoxic encephalopathy. Evaluate for brain . COMPARISON: Head CT from earlier today. FINDINGS: Flow phase and static images of the head and neck obtained following intravenous administration of 20 mCi of technetium pertechnetate 99m. There is no evidence of intracranial blood flow. Increased activity seen in the nasal area. CONCLUSION: No intracranial blood flow identified, as described above. Correlation with clinical findings recommended. Thank you for the opportunity to participate in this patient's care.
[2017-01-17] MEDS: PITRESSin 20 UNIT in NACL 0.9% 100 ML IV SCH (13:26)
[2017-01-17 13:53] LABS: BUN/Creatinine Ratio 7.04; Calcium 8.2 mg/dL (8.4-10.2); Chloride 104.8 mmol/L (98-107); Potassium 4.2 mmol/L (3.6-5.0)
--- NOTE | 2017-01-17 13:57 | Death Summary ---
Summary - Providers Date of service: 01/17/17 Consults: 01/15/17 03:32 Consult to Physician [CONS] Routine Consulting Provider: MEHUL GLOVER Reason For Exam: Cardiac arrest Place consult to:: Melanie VEGA Notified:: Rubén Phan Phone number called:: paged overhead Was contact made?: Yes If yes, spoke with:: Rubén Phan Time called:: 11:49 01/15/17 11:30 Consult to Physician [CONS] Routine Consulting Provider: LOEDAN MARTIN Reason For Exam: vfib arrest Place consult to:: Rubén Phan Notified:: Rubén Phan Phone number called:: paged overhead Was contact made?: Yes If yes, spoke with:: Rubén Phan Time called:: 11:52 01/16/17 11:01 Consult to Physician [CONS] Routine Consulting Provider: MEHUL OSBORNE Reason For Exam: anoxic encephalopathy Place consult to:: Dylon Notified:: yes Phone number called:: [phone] Was contact made?: Yes If yes, spoke with:: Dylon Time called:: 11:29 Comment:: text message sent and Dr. Osborne will try and see patient today. Attending: CARMEN NICK - summary Date of admission: 01/15/17 03:30 Date of : 01/17/17 Reason for admission: vfib arrest Pertinent studies: brain flow Disposition: 61-year-old woman with a history of valve replacement x 2 and unknown other medical problems who presents to [facility] ED status post cardiac arrest on 01/15 early AM. Patient last known normal was 11:00-11:30 pm . She then she developed decreased responsiveness and shortness of breath. EMS received a call regarding respiratory distress approximately 11:30pm. They arrived on scene by 11:55 pm and patient was apneic. Initial rhythm identified was V. fib , she received epinephrine x 5 doses, 6 defibrillated shocks, 1 amp of bicarbonate, 1 amp of D50, 2 mg Narcan, and Amiodarone 300 mg. Patient was intubated. EMS reports that patient had temporarily return of spontaneous circulation prior to arrival. Patient received 1 defibrillator shock, epinephrine 1 mg, and amiodarone 150 IV push. Positive return of spontaneous circulation with palpable pulse with systolic blood pressure above 100. Unclear down time. Patient was seen by pulmonary and neurology consultation. On neurologic exam pt had no brainstem reflexes (absent pupillary light response , corneal reflex, OCR, cold caloric response or gag) and no movement reflexic or purposeful to proximal/distal noxious stimulation. Neurology felt that the patient met clinical criteria for cerebral brain 2/2 anoxic-ischemic encephalopathy. A brain flow study was obtained for confirmation. The brain flow study revealed no intracranial blood flow and the patient was pronounced at the time of the confirmed study at 1319. summary time 32 minutes. Sister was at the bedside and notified. Case also discussed with [employer]. - Final diagnosis (1) Anoxic encephalopathy Note: Final diagnosis: (2) Brain Note: Final diagnosis: (3) Septic shock Note: Final diagnosis: (4) Elevated troponin Note: Final diagnosis: (5) Lactic acidosis Note: Final diagnosis: (6) Leukocytosis Qualifiers: Leukocytosis type: L Note: Final diagnosis: (7) Renal insufficiency Note: Final diagnosis: (8) Sudden cardiac arrest Note: Final diagnosis: (9) V-tach Note: Final diagnosis: (10) Acute respiratory failure with hypoxia Note: Final diagnosis:
--- NOTE | 2017-01-17 13:59 | Death Note ---
Note Date of : 01/17/17 Time of : 13:19 - Preliminary Cause of (problem) (1) Anoxic encephalopathy Preliminary cause of (2) Brain Preliminary cause of (3) Septic shock Preliminary cause of (4) Elevated troponin Preliminary cause of (5) Lactic acidosis Preliminary cause of (6) Leukocytosis Qualifiers: Leukocytosis type: L Preliminary cause of (7) Renal insufficiency Preliminary cause of (8) Sudden cardiac arrest Preliminary cause of (9) V-tach Preliminary cause of (10) Acute respiratory failure with hypoxia Preliminary cause of
[2017-01-17 14:15] VITALS: BP 102/61
[2017-01-17 15:20] LABS: Albumin/Globulin Ratio 0.6 %; Bilirubin,Direct 0.9 mg/dL (0-0.2); Bilirubin,Indirect 0.1 mg/dL; Total Protein 5.4 g/dL (6.3-8.2)
== END 2017-01-17 16:23 | DRG 871 ==
LOC: ED 00:39 → CC1 03:30
PROVIDERS: ADMIT Internal Medicine; ATTEND Hospitalist
PROC: 5A1945Z Respiratory Ventilation, 24-96 Consecutive Hours (ICD-10-PCS; principal; 2017-01-15)
PROC: 0BH17EZ Insertion of Endotracheal Airway into Trachea, Via Natural or Artificial Opening (ICD-10-PCS; 2017-01-15)
PROC: 4A033R1 Measurement of Arterial Saturation, Peripheral, Percutaneous Approach (ICD-10-PCS; 2017-01-15)
PROC: 02HV33Z Insertion of Infusion Device into Superior Vena Cava, Percutaneous Approach (ICD-10-PCS; 2017-01-15)
DX: A41.9 Sepsis, unspecified organism (principal); J96.01 Acute respiratory failure with hypoxia; G93.40 Encephalopathy, unspecified; N17.0 Acute kidney failure with tubular necrosis; R65.21 Severe sepsis with septic shock; G93.1 Anoxic brain damage, not elsewhere classified; I42.9 Cardiomyopathy, unspecified; Z68.41 Body mass index [BMI] 40.0-44.9, adult; I46.9 Cardiac arrest, cause unspecified; I49.01 Ventricular fibrillation; I10 Essential (primary) hypertension; E87.6 Hypokalemia; E87.8 Other disorders of electrolyte and fluid balance, not elsewhere classified; I25.10 Atherosclerotic heart disease of native coronary artery without angina pectoris; E66.01 Morbid (severe) obesity due to excess calories; I48.0 Paroxysmal atrial fibrillation; Z95.2 Presence of prosthetic heart valve; Z95.1 Presence of aortocoronary bypass graft; Z95.5 Presence of coronary angioplasty implant and graft
CPT/HCPCS: 36415; 36600; 70450; 71010; 74000; 76770; 78601; 80048; 80061; 80074; 82140; 82550; 82553; 82803; 82962; 83735; 84443; 84484; 85014; 85018; 85027; 85049; 85610; 85730; 87040; 87070; 87086; 87205; 93005; 93010; 93306; 94002; 94003; 96361; 96365; 99291; A9512; J0171; J0282; J1815; J2543; J3475; J3480; J7030; J7050; J7060